=== PATIENT | male | born 1960 | race African-American/Black ===

== ENCOUNTER 2019-08-24 15:43 | Inpatient (IN) | payer MEDICAID ==
[~2019-08-24] VITALS: Ht 170.2 cm; Wt 75.9 kg
[2019-08-24] MEDS ORDERED: ALBUTEROL SULF8.5 GM INH (15:52)
[2019-08-24 16:11] LABS: BASOPHILS 0.5 % (0-2); EOSINOPHILS 1.5 % (0-7); HEMATOCRIT 40.7 % (42.0-54.0); HEMOGLOBIN 13.1 g/dL (13.5-17.5); IMMATURE GRANULOCYTES 0.2 % (0-5); LYMPHOCYTES 29.9 % (15-50); MCH 30.6 pg (26.0-34.0); MCHC 32.2 g/dL (31.0-37.0); MCV 95.1 fL (80.0-100.0); MEAN PLATELET VOLUME 9.2 fL (7.4-10.4); MONOCYTES 12.8 % (2-11); NEUTROPHILS 55.1 % (40-80); PLATELET COUNT 185 10x3/uL (130-400); RBC 4.28 10x6/uL (4.20-6.10); RDW 13.3 % (11.5-14.5); WBC 5.5 10x3/uL (4.8-10.8)
[2019-08-24 16:21] LABS: ANION GAP 5.8 mmol/L (8-16); CALCIUM 8.4 mg/dL (8.5-10.1); CREATININE - SERUM 1.6 mg/dL (0.6-1.3); POTASSIUM - SERUM 3.8 mmol/L (3.5-5.1)
[2019-08-24 16:27] LABS: ALBUMIN 3.5 g/dL (3.4-5.0); BILIRUBIN - TOTAL 0.3 mg/dL (0.2-1.3); PROTEIN - SERUM 7.5 g/dL (6.4-8.2)
[2019-08-24 20:45] LABS: PROTIME 12.7 SECONDS (11.6-15.0)
[2019-08-24 20:46] LABS: APTT 30.8 SECONDS (22.8-39.4)
[2019-08-24 20:47] LABS: D-DIMER-QUANTITATIVE 0.4 ug/mLFEU (0.20-0.54)
[2019-08-24 21:01] LABS: CKMB 1.8 U/L (0.0-3.6); CREATINE KINASE 292 UL (21-232); PRO BNP 292 pg/mL (0-125)
[2019-08-25] VITALS (7 sets, daily range): BP systolic 124–171; BP diastolic 74–97; Ht 170.2 cm; Wt 75.9 kg
--- NOTE | 2019-08-25 07:15 | NUR ---
REC'D SITTING ON SIDE OF BED AWAKE AND ALERT. RESP EVEN AND UNLABORED WITH NO DISTRESS NOTED. CAN EXPRESS NEEDS AND WANTS WITH NONE VOICED AT THIS TIME. ASSESSMENT COMPLETED. C/L IN REACH AT BEDSIDE.
[2019-08-25 07:57] LABS: BASOPHILS 0 % (0-2); EOSINOPHILS 0 % (0-7); HEMATOCRIT 44.1 % (42.0-54.0); HEMOGLOBIN 14.4 g/dL (13.5-17.5); IMMATURE GRANULOCYTES 0.2 % (0-5); LYMPHOCYTES 11.3 % (15-50); MCH 30.7 pg (26.0-34.0); MCHC 32.7 g/dL (31.0-37.0); NEUTROPHILS 86.5 % (40-80); PLATELET COUNT 209 10x3/uL (130-400); RBC 4.69 10x6/uL (4.20-6.10); WBC 5.1 10x3/uL (4.8-10.8)
[2019-08-25 08:12] LABS: ALBUMIN 3.3 g/dL (3.4-5.0); ANION GAP 11.6 mmol/L (8-16); BILIRUBIN - TOTAL 0.32 mg/dL (0.2-1.3); CALCIUM 8.9 mg/dL (8.5-10.1); CREATININE - SERUM 1.3 mg/dL (0.6-1.3); MAGNESIUM - SERUM 1.8 mg/dL (1.8-2.4); PROTEIN - SERUM 7.6 g/dL (6.4-8.2)
[2019-08-25 08:13] LABS: POTASSIUM - SERUM 4.6 mmol/L (3.5-5.1)
--- NOTE | 2019-08-25 18:43 | NUR ---
I have reviewed this patient and I concur with the Shift Assessment completed by the Licensed Practical Nurse today this shift.
--- NOTE | 2019-08-25 20:25 | NUR ---
SITTING UP ON SIDE OF BED. ALERT AND ORIENTED X4. FAMILY AT BEDSIDE. RESP IRREG. SOB WITH MIN EXERTION. NONPROD COUGH NOTED. STATES HE HAS ALOT OF CLEAR NASAL DRAINAGE. VOICE IS HOARSE. AMBULATORY. REPORTS SORE THROAT BUT OTHERWISE DENIES PAIN. SALINE LOCK NOTED TO RT AC. CL IN REACH.
--- NOTE | 2019-08-25 22:30 | NUR ---
AMBULATED TO BR. VERY SOB, TACHYCARDIC. ENCOURAGED BEDREST. SAO2 95% AFTER ENCOURAGING TO TAKE SLOW DEEP BREATHS IN THOUGH NOSE AND OUT THROUGH MOUTH. PULSE WENT FROM 108 TO 84. PT NOT REQUIRING O2 AT THIS TIME. CL IN REACH.
[2019-08-25 23:55] LABS: UDS - AMPHET NEGATIVE QUAL (NEGATIVE); UDS - BARB NEGATIVE QUAL (NEGATIVE); UDS - BENZO NEGATIVE QUAL (NEGATIVE); UDS - COCAINE NEGATIVE QUAL (NEGATIVE); UDS - OPIATE NEGATIVE QUAL (NEGATIVE); UDS - PCP NEGATIVE QUAL (NEGATIVE); UDS - THC NEGATIVE QUAL (NEGATIVE)
[2019-08-26 00:05] LABS: APPEARANCE CLEAR (CLEAR); BILIRUBIN NEGATIVE (NEGATIVE); COLOR STRAW (YELLOW); GLUCOSE 100 mg/dL (NEGATIVE); KETONE NEGATIVE (NEGATIVE); NITRITE NEGATIVE (NEGATIVE); PROTEIN 1+ mg/dL (NEGATIVE); SPECIFIC GRAVITY 1.005 (1.005-1.020); UROBILINOGEN NORMAL (NORMAL)
[2019-08-26 00:06] LABS: BACTERIA FEW /hpf (NEGATIVE); EPITHELIAL CELLS 0-5 /hpf (0-5); RED CELLS - URINE 0-5 /hpf (0-5); WHITE CELLS - URINE NSEEN /hpf (NEGATIVE)
[2019-08-26 00:30] VITALS: BP 131/66
--- NOTE | 2019-08-26 01:59 | NUR ---
RESTING QUIETLY WITH EYES CLOSED. RESP NONLABORED. NO DISTRESS. CHILD ASLEEP IN ROOM. CL IN REACH.
[2019-08-26 05:09] VITALS: BP 132/65
--- NOTE | 2019-08-26 05:43 | NUR ---
IRRITABLE THIS AM. REFUSED LABS THIS AM. STATES HE DOESNT KNOW WHY HE IS HERE AND WHAT HIS LAB RESULTS WERE YESTERDAY AND DOESNT KNOW WHAT THE DR HAS PLANNED FOR HIM. STATES, "THAT DR CAME IN FOR 15 SECONDS YESTERDAY AND WOULDNT LISTEN TO ANYTHING I SAID." REVIEWED HIS LAB RESULTS FROM YESTERDAY AND EXPLAINED WHAT TESTS HAD BEEN ORDERED BUT ENCOURAGED HIM TO SPEAK WITH DR TODAY. MEDICATED AT THIS TIME FOR C/O SORE THROAT. STATES HE DIDNT HAVE A SORE THROAT UNTIL HE USED A MARIJUANA VAPING DEVICE. UDS WAS NEGATIVE FOR THC.
--- NOTE | 2019-08-26 05:55 | NUR ---
AGREED TO HAVE LABS DRAWN AT THIS TIME.
[2019-08-26 06:13] LABS: BASOPHILS 0 % (0-2); EOSINOPHILS 0 % (0-7); HEMATOCRIT 40.5 % (42.0-54.0); IMMATURE GRANULOCYTES 0.2 % (0-5); LYMPHOCYTES 4.9 % (15-50); MCH 30.4 pg (26.0-34.0); MCHC 32.1 g/dL (31.0-37.0); MCV 94.6 fL (80.0-100.0); MEAN PLATELET VOLUME 9.7 fL (7.4-10.4); MONOCYTES 5.1 % (2-11); NEUTROPHILS 89.8 % (40-80); PLATELET COUNT 195 10x3/uL (130-400); RBC 4.28 10x6/uL (4.20-6.10); RDW 13.4 % (11.5-14.5)
[2019-08-26 06:39] LABS: ANION GAP 12.2 mmol/L (8-16); CALCIUM 8.8 mg/dL (8.5-10.1); CARBON DIOXIDE 26.1 mmol/L (21.0-32.0); CREATININE - SERUM 1.2 mg/dL (0.6-1.3); PHOSPHOROUS 3.5 mg/dL (2.5-4.9); POTASSIUM - SERUM 4.3 mmol/L (3.5-5.1)
[2019-08-26 08:03] VITALS: BP 129/83
[2019-08-26 12:15] VITALS: BP 150/90
--- NOTE | 2019-08-26 14:11 | NUR ---
I have reviewed this patient and I concur with the Shift Assessment completed by the Licensed Practical Nurse today this shift.
--- NOTE | 2019-08-26 14:31 | MORECARE ---
CASE MANAGEMENT DISCHARGE SUMMARY PATIENT: DANIKA WILSON UNIT: [id number] ADM DATE: 08/24/19 AGE: 59 : 58 SEX: M ROOM/BED: D.2229 AUTHOR: PARVIZ,DOC PHYSICIAN: REFERRING PHYSICIAN: MOON KING MD DATE OF SERVICE: 08/26/19 Discharge Plan Patient Name: DANIKA WILSON [facility] [facility] 1960 Planned Disposition: Home Anticipated Discharge Date: Discharge Date: Expected LOS: Initial Reviewer: [id number] Initial Review Date: 08/26/2019 Generated: 08/26/19 3:31 pm Comments DCP- Discharge Planning Updated by [email or web address]: Nitza Chase on 08/26/19 1:[address] Patient Name: DANIKA WILSON Admission Status: ER Accout number: [id number] Admission Date: 08-24-2019 : 1960 Admission Diagnosis: Attending: MOON KING Current LOS: 2 Anticipated DC Date: Planned Disposition: Home Primary Insurance: [employer] PRVT OPTIONS TAMARA Discharge Planning Comments: CM met with patient to complete initial dc planning assessment. CM educated patient on the CM role and verbal consent given by patient to complete assessment. Patient lives at home alone at [address] [place] [address] [address] At discharge patient plans to return and feels this is a safe discharge. CM discussed availability of home health, rehab services, and medical equipment. Patient denied known discharge needs at this time. CM will continue to follow and will assist as needed with dc plans/needs. Physical Meteorologist: Nitza Chase DCPIA - Discharge Planning Initial Assessment Updated by [email or web address]: Nitza Chase on 08/26/19 2:24 pm * Is the patient Alert and Oriented? Yes * How many steps to enter\exit or inside your home? 0/0 * PCP None * Pharmacy [facility] * Preadmission Environment Home Alone * ADLs Independent * Equipment Other Oxygen * Other Equipment Portable oxygen * List name and contact numbers for known caregivers / representatives who currently or will assist patient after discharge: [facility] - [phone] Lexi [facility] - [phone] * Verbal permission to speak to the caregivers and representatives has been obtained from the patient. Yes * Community resources currently utilized None * Additional services required to return to the preadmission environment? No * Can the patient safely return to the preadmission environment? Yes * Has this patient been hospitalized within the prior 30 days at any hospital? No Coverage Notice Reviewer: [id number] Francheska Nitza Rena Notice Issued Date-Time: 08/26/2019 14:21 Notice Type: Patient Choice Letter Notice Delivered To: Patient Relationship to Patient: Self Peach Grower Name: Delivery Method: HAND - Hand Delivered Riddhi Days: Prior Verbal Notification: Recipient Understood Notice: Yes Recipient Signature: Yes Med Rec Note Co-signed by Attending: Coverage Notice Comment: ROSELINE for [employer] Patient Name: DANIKA WILSON Page [phone] at 1431 All edits/amendments must be made on the electronic document DICTATION DATE: 08/26/19 143 DEVELOPING MACHINE OPERATOR: FERNANDA 08/26/19 1431 RPT#: [id number] DC DATE: STATUS: ADM IN [facility] [address] [place] [address] END OF REPORT
[2019-08-26 17:20] VITALS: BP 142/62
[2019-08-26] MEDS ORDERED: LISINOPRIL20 MG PO (18:30)
[2019-08-26] MEDS ORDERED: TESSALON PERLE100 MG PO (18:31)
[2019-08-26] MEDS ORDERED: SINGULAIR10 MG PO (18:33)
[2019-08-26] MEDS ORDERED: FLUTICASONE PRO16 GM NASAL (18:35)
[2019-08-26] MEDS ORDERED: PREDNISONE10 MG PO (18:36)
[2019-08-26] MEDS ORDERED: MUCINEX DM ER1 EAC1 PO (18:50)
[2019-08-26] MEDS ORDERED: SYMBICORT 16010.2 GM INH (18:57)
[2019-08-26] MEDS ORDERED: ALBUTEROL SULF8.5 GM INH (18:58)
--- NOTE | 2019-08-26 19:44 | NUR ---
A/O WITH NO SIGNS OF ACUTE DISTRESS. WENT OVER DISCHARGE INSTRUCTIONS AND PT DENIES QUESTIONS AT THIS TIME. DC IV TO RIGHT FOREARM WITH CATH INTACT. TRASPORTED PT VIA WHEELCHAIR TO VEHICLE.
[2019-08-26 21:00] VITALS: BP 151/90
--- NOTE | 2019-08-28 08:33 | MORECARE ---
CASE MANAGEMENT DISCHARGE SUMMARY PATIENT: DANIKA WILSON UNIT: [id number] ADM DATE: 08/24/19 AGE: 59 : 58 SEX: M ROOM/BED: D.2229 AUTHOR: PARVIZ,DOC PHYSICIAN: REFERRING PHYSICIAN: MOON KING MD DATE OF SERVICE: 08/28/19 Discharge Plan Patient Name: DANIKA WILSON [facility] [facility] 1960 Planned Disposition: Home Anticipated Discharge Date: Discharge Date: 08/26/2019 Expected LOS: 0 Initial Reviewer: [id number] Initial Review Date: 08/26/2019 Generated: 08/28/19 9:33 am Comments DCP- Discharge Planning Updated by [email or web address]: Nitza Chase on 08/26/19 1:[address] Patient Name: DANIKA WILSON Admission Status: ER Accout number: [id number] Admission Date: 08-24-2019 : 1960 Admission Diagnosis: Attending: MOON KING Current LOS: 2 Anticipated DC Date: Planned Disposition: Home Primary Insurance: [employer] PRVT OPTIONS TAMARA Discharge Planning Comments: CM met with patient to complete initial dc planning assessment. CM educated patient on the CM role and verbal consent given by patient to complete assessment. Patient lives at home alone at [address] [place] [address]. At discharge patient plans to return and feels this is a safe discharge. CM discussed availability of home health, rehab services, and medical equipment. Patient denied known discharge needs at this time. CM will continue to follow and will assist as needed with dc plans/needs. Investment Executive: Nitza Chase DCPIA - Discharge Planning Initial Assessment Updated by [email or web address]: Nitza Chase on 08/26/19 2:24 pm * Is the patient Alert and Oriented? Yes * How many steps to enter\exit or inside your home? 0/0 * PCP None * Pharmacy [facility] * Preadmission Environment Home Alone * ADLs Independent * Equipment Other Oxygen * Other Equipment Portable oxygen * List name and contact numbers for known caregivers / representatives who currently or will assist patient after discharge: Michelle [facility] [phone] Lexi [facility] [phone] * Verbal permission to speak to the caregivers and representatives has been obtained from the patient. Yes * Community resources currently utilized None * Additional services required to return to the preadmission environment? No * Can the patient safely return to the preadmission environment? Yes * Has this patient been hospitalized within the prior 30 days at any hospital? No Coverage Notice Reviewer: [id number] Francheska Chase Notice Issued Date-Time: 08/26/2019 14:21 Notice Type: Patient Choice Letter Notice Delivered To: Patient Relationship to Patient: Self Senior C Software Engineer Name: Delivery Method: HAND - Hand Delivered Riddhi Days: Prior Verbal Notification: Recipient Understood Notice: Yes Recipient Signature: Yes Med Rec Note Co-signed by Attending: Coverage Notice Comment: ROSELINE for [employer] Delcid DP export: 08/26/19 1:31 p Patient Name: DANIKA WILSON Page [phone] at 0833 All edits/amendments must be made on the electronic document DICTATION DATE: 08/28/19832 RETAIL PARTS PRO: FERNANDA 08/28/19832 RPT#: [id number] DC DATE:08/26/19 STATUS: DIS IN [facility] [address] [place] [address] END OF REPORT
== END 2019-08-26 22:58 | disposition home or self-care (01) | DRG 202 ==
LOC: D.ER 15:43 → D.MS 20:51
PROVIDERS: Emergency Medicine; Family Medicine; ADMIT Internal Medicine Nephrology; ATTEND Internal Medicine Nephrology
DX: J20.9 Acute bronchitis, unspecified (principal); J44.0 Chronic obstructive pulmonary disease with (acute) lower respiratory infection; J98.11 Atelectasis; J44.1 Chronic obstructive pulmonary disease with (acute) exacerbation; Z85.118 Personal history of other malignant neoplasm of bronchus and lung; I10 Essential (primary) hypertension; Z72.0 Tobacco use; Z91.14 Patient's other noncompliance with medication regimen; F12.90 Cannabis use, unspecified, uncomplicated; D72.829 Elevated white blood cell count, unspecified

== ENCOUNTER 2019-09-05 15:19 | Inpatient (IN) | payer MEDICAID ==
[~2019-09-05] VITALS: Ht 170.2 cm; Wt 79.1 kg
[~2019-09-05 15:19] MED LIST: ALBUTEROL SULF8.5 GM INH; FLUTICASONE PRO16 GM NASAL; LISINOPRIL20 MG PO; MUCINEX DM ER1 EAC1 PO; PREDNISONE10 MG PO; SINGULAIR10 MG PO; SYMBICORT 16010.2 GM INH; TESSALON PERLE100 MG PO
[2019-09-05 15:50] LABS: BASOPHILS 0.1 % (0-2); EOSINOPHILS 1.4 % (0-7); HEMATOCRIT 41.7 % (42.0-54.0); HEMOGLOBIN 13.3 g/dL (13.5-17.5); IMMATURE GRANULOCYTES 0.4 % (0-5); LYMPHOCYTES 22.7 % (15-50); MCH 30.6 pg (26.0-34.0); MCHC 31.9 g/dL (31.0-37.0); MCV 96.1 fL (80.0-100.0); MEAN PLATELET VOLUME 9.4 fL (7.4-10.4); NEUTROPHILS 62.4 % (40-80); PLATELET COUNT 179 10x3/uL (130-400); RBC 4.34 10x6/uL (4.20-6.10); RDW 13.9 % (11.5-14.5); WBC 7.7 10x3/uL (4.8-10.8)
[2019-09-05 15:58] LABS: APTT 26.2 SECONDS (22.8-39.4); CALC OSMOLALITY 289 mosm/kg (275-300); CALCIUM 8.4 mg/dL (8.5-10.1); CARBON DIOXIDE 34.4 mmol/L (21.0-32.0); CHLORIDE - SERUM 105 mmol/L (98-107); CREATININE - SERUM 1.4 mg/dL (0.6-1.3); GLUCOSE 97 mg/dL (74-106); INR 0.99 (0.85-1.17); POTASSIUM - SERUM 3.3 mmol/L (3.5-5.1); PROTIME 12.6 SECONDS (11.6-15.0); SODIUM 144 mmol/L (136-145); UREA NITROGEN 20 mg/dL (7-18); eGFR NON AFRICAN AMERICAN 55 mL/min (90-120)
[2019-09-05 16:14] LABS: ALKALINE PHOSPHATASE 100 U/L (46-116); ALT (SGPT) 20 U/L (10-68); BILIRUBIN - TOTAL 0.21 mg/dL (0.2-1.3); CKMB 2.9 U/L (0.0-3.6); CREATINE KINASE 184 UL (21-232); PRO BNP 238 pg/mL (0-125); PROTEIN - SERUM 6.7 g/dL (6.4-8.2); TROPONIN-I 0.029 ng/mL (0.000-0.060)
--- NOTE | 2019-09-05 20:40 | NUR ---
RECEIVED PT FROM ER VIA STRETCHER. GEN WEAKNESS NOTED. ALERT AND ORIENTED X4. RESP LABORED, IRREG. STATES, "I'M IN BAD SHAPE." STATES HE HAS DIFF SWALLOWING PILLS. C/O PAIN IN RT CHEST AND LT NECK. VOICE IS HOARSE. FAMILY AT BEDSIDE. O2 @ 3L/NC. REPORTS PROD COUGH WITH YELLOW SPUTUM BUT NONE SEEN. AUDIBLE EXP WHEEZES HEARD IN UPPER AIRWAY BUT BBS DIMINISHED. SALINE LOCK NOTED TO RT FOREARM. BED ALARM ON FOR PT SAFETY. SR ELEVATED X2. CL IN REACH.
--- NOTE | 2019-09-05 21:14 | NUR ---
REQUESTING MORPHINE FOR PAIN. MEDICATED WITH MORPHINE FOR C/O LT NECK AND RT CHEST PAIN. DIFF STAYING AWAKE DURING ADMISSION ASSESSEMNT. POOR HISTORIAN AT TIMES. SR ELEVATED X2. CL IN REACH. BED ALARM ON FOR PT SAFETY. CHILD AT BEDSIDE STAYING WITH PT.
[2019-09-05] MEDS ORDERED: PROMETHAZINE W473 ML PO (21:28)
[2019-09-05 23:43] VITALS: BP 150/88; BMI 26.7
[2019-09-06] VITALS: BP 151/84
--- NOTE | 2019-09-06 01:34 | NUR ---
HOB ELEVATED. EYES CLOSED. RESP DEEP. HAS BEEN ASLEEP SINCE MORPHINE GIVEN. AWAKENS PER TOUCH. VERY DROWSY. NO DISTRESS. O2 @ 3L/NC. V/S STABLE. CL IN REACH.
--- NOTE | 2019-09-06 02:40 | NUR ---
ASSISTED UP TO BR TO VOID. USED URINAL THEN HAD A BM. VERY SOB.
[2019-09-06 04:00] VITALS: BP 157/102
[2019-09-06 07:59] VITALS: BP 176/98
[2019-09-06 09:55] LABS: BASOPHILS 0 % (0-2); EOSINOPHILS 0 % (0-7); HEMATOCRIT 42.4 % (42.0-54.0); HEMOGLOBIN 13.5 g/dL (13.5-17.5); IMMATURE GRANULOCYTES 0.2 % (0-5); LYMPHOCYTES 4.5 % (15-50); MCHC 31.8 g/dL (31.0-37.0); MCV 97.2 fL (80.0-100.0); MEAN PLATELET VOLUME 9.4 fL (7.4-10.4); NEUTROPHILS 94.3 % (40-80); PLATELET COUNT 189 10x3/uL (130-400); RBC 4.36 10x6/uL (4.20-6.10); RDW 14.1 % (11.5-14.5); WBC 8.9 10x3/uL (4.8-10.8)
[2019-09-06 10:14] LABS: ANION GAP 7.8 mmol/L (8-16); BILIRUBIN - TOTAL 0.36 mg/dL (0.2-1.3); CALCIUM 8.6 mg/dL (8.5-10.1); CARBON DIOXIDE 33.6 mmol/L (21.0-32.0); CREATININE - SERUM 1.4 mg/dL (0.6-1.3); PROTEIN - SERUM 7.1 g/dL (6.4-8.2)
[2019-09-06 10:16] LABS: POTASSIUM - SERUM 4.4 mmol/L (3.5-5.1)
--- NOTE | 2019-09-06 10:37 | NUR ---
PT ALERT X 4. INSPIRATORY AND EXPIRATORY WHEEZES TO ALL DOWD, 3L O2 PER NC. PT REPORTING TROUBLE SWALLOWING. IV TO RIGHT FOREARM, PATENT, DRESSING CDI. PT REPORTING PAIN OF 8/10, MEDICATED PER ORDERS, WILL MONITOR. BED LOW, CALL LIGHT IN REACH. NO OTHER NEEDS AT THIS TIME.
[2019-09-06 11:39] VITALS: BP 157/90
[2019-09-06 16:31] VITALS: BP 179/81
[2019-09-06 20:00] VITALS: BP 180/86
[2019-09-06 20:02] LABS: APPEARANCE CLEAR (CLEAR); BILIRUBIN NEGATIVE (NEGATIVE); COLOR YELLOW (YELLOW); GLUCOSE NEGATIVE (NEGATIVE); KETONE NEGATIVE (NEGATIVE); NITRITE NEGATIVE (NEGATIVE); PROTEIN 1+ mg/dL (NEGATIVE); UROBILINOGEN NORMAL (NORMAL)
[2019-09-06 20:03] LABS: BACTERIA FEW /hpf (NEGATIVE); RED CELLS - URINE 0-5 /hpf (0-5); WHITE CELLS - URINE RARE /hpf (NEGATIVE)
[2019-09-07] VITALS: BP 162/67
[2019-09-07 04:00] VITALS: BP 179/93
[2019-09-07 06:02] LABS: BASOPHILS 0 % (0-2); EOSINOPHILS 0 % (0-7); HEMATOCRIT 40.4 % (42.0-54.0); HEMOGLOBIN 12.8 g/dL (13.5-17.5); IMMATURE GRANULOCYTES 0.2 % (0-5); LYMPHOCYTES 4.2 % (15-50); MCH 30.4 pg (26.0-34.0); MCHC 31.7 g/dL (31.0-37.0); MONOCYTES 8.2 % (2-11); NEUTROPHILS 87.4 % (40-80); PLATELET COUNT 183 10x3/uL (130-400); RBC 4.21 10x6/uL (4.20-6.10); RDW 14.2 % (11.5-14.5)
[2019-09-07 06:15] LABS: WBC 16.2 10x3/uL (4.8-10.8)
[2019-09-07 06:35] LABS: ANION GAP 7.8 mmol/L (8-16); BILIRUBIN - TOTAL 0.24 mg/dL (0.2-1.3); CALCIUM 8.6 mg/dL (8.5-10.1); CARBON DIOXIDE 32.2 mmol/L (21.0-32.0); CREATININE - SERUM 1.2 mg/dL (0.6-1.3); PROTEIN - SERUM 6.6 g/dL (6.4-8.2); VANCOMYCIN - TROUGH 9.4 ug/mL (10.0-20.0)
[2019-09-07 08:21] VITALS: BP 148/78
--- NOTE | 2019-09-07 10:41 | NUR ---
FAMILY IN ROOM. PATIENT HAS HAD A SHOWER. CLEAN LINENS PROVIDED. NEW TELEMETRY ELECTRODES. CL IN REACH. [facility]
[2019-09-07 13:06] VITALS: BMI 24.1
[2019-09-07 13:15] VITALS: BP 162/76
[2019-09-07 16:19] VITALS: BP 162/94
--- NOTE | 2019-09-07 17:05 | MORECARE ---
CASE MANAGEMENT DISCHARGE SUMMARY PATIENT: DANIKA WILSON UNIT: [id number] ADM DATE: 09/05/19 AGE: 59 : 58 SEX: M ROOM/BED: D.2238 AUTHOR: GRANT JJ PHYSICIAN: REFERRING PHYSICIAN: MOON KING MD DATE OF SERVICE: 09/07/19 Discharge Plan Patient Name: DANIKA WILSON [facility] [facility] 1960 Planned Disposition: Home Anticipated Discharge Date: Discharge Date: Expected LOS: Initial Reviewer: [email or web address] Initial Review Date: 09/07/2019 Generated: 09/07/19 6:05 pm DCPIA - Discharge Planning Initial Assessment Updated by [id number]: Nitza Chase on 09/07/19 5:00 pm * Is the patient Alert and Oriented? Yes * How many steps to enter\exit or inside your home? 0/0 * PCP Bernice Kebede * Pharmacy [facility] on [facility] * Preadmission Environment Home Alone * ADLs Independent * Equipment Other Oxygen * Other Equipment Portable oxygen * List name and contact numbers for known caregivers / representatives who currently or will assist patient after discharge: Michelle [phone] Lexi [facility] [phone] Sanjana Wright [facility] [phone] * Verbal permission to speak to the caregivers and representatives has been obtained from the patient. Yes * Community resources currently utilized None * Please name any agencies selected above. DME for oxygen is [facility] * Additional services required to return to the preadmission environment? Yes * Can the patient safely return to the preadmission environment? Yes * Has this patient been hospitalized within the prior 30 days at any hospital? Yes Patient Name: DANIKA WILSON Page [phone] at 1705 All edits/amendments must be made on the electronic document DICTATION DATE: 09/07/191704 CHEMICAL TREATMENT OPERATOR: FERNANDA 09/07/191704 RPT#: [id number] DC DATE: STATUS: ADM IN [facility] [address] [place] [address] END OF REPORT
--- NOTE | 2019-09-07 17:13 | MORECARE ---
CASE MANAGEMENT DISCHARGE SUMMARY PATIENT: DANIKA WILSON UNIT: [id number] ADM DATE: 09/05/19 AGE: 59 : 58 SEX: M ROOM/BED: D.2238 AUTHOR: PARVIZDOC PHYSICIAN: REFERRING PHYSICIAN: MOON KING MD DATE OF SERVICE: 09/07/19 Discharge Plan Patient Name: DANIKA WILSON [facility] : 1960 Planned Disposition: Home Anticipated Discharge Date: Discharge Date: Expected LOS: Initial Reviewer: [email or web address] Initial Review Date: 09/07/2019 Generated: 09/07/19 6:13 pm Comments DCP- Discharge Planning Updated by [email or web address]: Nitza Chase on 09/07/19 4:[address] Patient Name: DANIKA WILSON Admission Status: ER Accout number: [id number] Admission Date: 09-05-2019 : 1960 Admission Diagnosis: Attending: MOON KING Current LOS: 2 Anticipated DC Date: Planned Disposition: Home Primary Insurance: [employer] PRVT OPTIONS TAMARA Discharge Planning Comments: CM met with patient to complete initial dc planning assessment. CM educated patient on the CM role and verbal consent given by patient to complete assessment. Patient lives at home alone. At discharge patient plans to return and feels this is a safe discharge. CM discussed availability of home health, rehab services, and medical equipment. Declines need for home health or rehab. Patient states Dr. Jacobs states he will need a nebulizer at discharge. I have called Akbar with [employer] and she will be here in the am. Patient states he has tried to have [employer] poultry picking machine tender his old oxygen machine, but they have not gotten it yet. I will have Akbar discuss this with the patient when she comes in the morning. CM will continue to follow and will assist as needed with dc plans/needs. Web Marketing Strategist: Nitza Chase DCPIA - Discharge Planning Initial Assessment Updated by [id number]: Nitza Chase on 09/07/19 5:00 pm * Is the patient Alert and Oriented? Yes * How many steps to enter\exit or inside your home? 0/0 * PCP Bernice Kebede * Pharmacy [facility] on [facility] * Preadmission Environment Home Alone * ADLs Independent * Equipment Other Oxygen * Other Equipment Portable oxygen * List name and contact numbers for known caregivers / representatives who currently or will assist patient after discharge: Michelle mckeon - [phone] Lexi mckeon - [phone] Sanjana mckeon - [phone] * Verbal permission to speak to the caregivers and representatives has been obtained from the patient. Yes * Community resources currently utilized None * Please name any agencies selected above. DME for oxygen is [facility] * Additional services required to return to the preadmission environment? Yes * Can the patient safely return to the preadmission environment? Yes * Has this patient been hospitalized within the prior 30 days at any hospital? Yes Coverage Notice Reviewer: [id number] Francheska Chase Notice Issued Date-Time: 09/07/2019 17:06 Notice Type: Patient Choice Letter Notice Delivered To: Patient Relationship to Patient: Self Transfer Driver Name: Delivery Method: HAND - Hand Delivered Riddhi Days: Prior Verbal Notification: Recipient Understood Notice: Yes Recipient Signature: Yes Med Rec Note Co-signed by Attending: Coverage Notice Comment: ROSELINE for [employer] Last DP export: 09/07/19 4:05 Patient Name: DANIKA WILSON Page [phone] at 1713 All edits/amendments must be made on the electronic document DICTATION DATE: 09/07/191712 TRICOT KNITTER: FERNANDA 09/07/191712 RPT#: [id number] DC DATE: STATUS: ADM IN [facility] [address] [place] [address] END OF REPORT
[2019-09-07 20:53] VITALS: BP 177/84
[2019-09-08 01:15] VITALS: BP 185/98
[2019-09-08 04:44] VITALS: BP 190/97
--- NOTE | 2019-09-08 06:23 | NUR ---
I have reviewed this patient and I concur with the Shift Assessment completed by the Licensed Practical Nurse today this shift.
[2019-09-08 06:39] LABS: BASOPHILS 0 % (0-2); EOSINOPHILS 0 % (0-7); HEMATOCRIT 38.8 % (42.0-54.0); HEMOGLOBIN 12.4 g/dL (13.5-17.5); IMMATURE GRANULOCYTES 0.3 % (0-5); LYMPHOCYTES 4.3 % (15-50); MCH 30.7 pg (26.0-34.0); MEAN PLATELET VOLUME 10.1 fL (7.4-10.4); MONOCYTES 6.6 % (2-11); NEUTROPHILS 88.8 % (40-80); PLATELET COUNT 174 10x3/uL (130-400); RBC 4.04 10x6/uL (4.20-6.10); RDW 14.3 % (11.5-14.5); WBC 14.1 10x3/uL (4.8-10.8)
[2019-09-08 06:43] LABS: ALBUMIN 2.7 g/dL (3.4-5.0); ANION GAP 9.6 mmol/L (8-16); BILIRUBIN - TOTAL 0.3 mg/dL (0.2-1.3); CALCIUM 8.6 mg/dL (8.5-10.1); CARBON DIOXIDE 31.5 mmol/L (21.0-32.0); CREATININE - SERUM 1.2 mg/dL (0.6-1.3); MAGNESIUM - SERUM 1.8 mg/dL (1.8-2.4); POTASSIUM - SERUM 4.1 mmol/L (3.5-5.1); PROTEIN - SERUM 6.2 g/dL (6.4-8.2)
--- NOTE | 2019-09-08 07:10 | NUR ---
PT RESTING IN BED. NO SIGNS OF DISTRESS. IV TO RIGHT FORARM PATENT NO REDNESS OR TENDERNESS. ON TELEMETRY 77 SR. ON 2L NC. DENIES ANY FURTHER NEED AT THIS TIME. CALL LIGHT IN REACH. BED LOW POSITION. FAMILY AT BEDSIDE AT THIS TIME.
[2019-09-08 08:35] VITALS: BP 189/101
[2019-09-08 12:15] VITALS: BP 166/91
[2019-09-08 16:51] VITALS: BP 166/91
--- NOTE | 2019-09-08 18:17 | NUR ---
I have reviewed this patient and I concur with the Shift Assessment completed by the Licensed Practical Nurse today this shift.
[2019-09-08 20:48] VITALS: BP 133/91
[2019-09-09 00:59] VITALS: BP 130/84
--- NOTE | 2019-09-09 05:00 | NUR ---
1930)rec'd. during walking rounds in bed upright sitting position. several visitors at bedside.denies any discomfort at present time. will continue to monitor for any chges and follow current plan of care
[2019-09-09 05:12] VITALS: BP 173/91
--- NOTE | 2019-09-09 06:06 | NUR ---
I have reviewed this patient and I concur with the Shift Assessment completed by the Licensed Practical Nurse today this shift.
[2019-09-09 06:12] LABS: BASOPHILS 0 % (0-2); EOSINOPHILS 0 % (0-7); HEMATOCRIT 42.1 % (42.0-54.0); HEMOGLOBIN 13.2 g/dL (13.5-17.5); IMMATURE GRANULOCYTES 0.4 % (0-5); LYMPHOCYTES 8.1 % (15-50); MCH 30.2 pg (26.0-34.0); MCHC 31.4 g/dL (31.0-37.0); MCV 96.3 fL (80.0-100.0); MEAN PLATELET VOLUME 9.7 fL (7.4-10.4); MONOCYTES 9.3 % (2-11); NEUTROPHILS 82.2 % (40-80); PLATELET COUNT 168 10x3/uL (130-400); RBC 4.37 10x6/uL (4.20-6.10); WBC 11.4 10x3/uL (4.8-10.8)
[2019-09-09 06:31] LABS: ANION GAP 5.3 mmol/L (8-16); BILIRUBIN - TOTAL 0.48 mg/dL (0.2-1.3); CALCIUM 8.7 mg/dL (8.5-10.1); CARBON DIOXIDE 35.7 mmol/L (21.0-32.0); CREATININE - SERUM 1.2 mg/dL (0.6-1.3); MAGNESIUM - SERUM 1.8 mg/dL (1.8-2.4); PROTEIN - SERUM 6.7 g/dL (6.4-8.2)
[2019-09-09 08:37] VITALS: BP 179/109
[2019-09-09 11:59] VITALS: BP 164/98
--- NOTE | 2019-09-09 16:18 | NUR ---
RESTING IN BED, FAMILY IN ROOM, NO DISTRESS NOTED, WILL HAVE PROCEDURE TOMORROW HERE
[2019-09-09 16:23] VITALS: BP 147/83
[2019-09-09 21:12] VITALS: BP 163/93
[2019-09-10] VITALS (21 sets, daily range): BP systolic 125–223; BP diastolic 73–143
--- NOTE | 2019-09-10 06:29 | NUR ---
I have reviewed this patient and I concur with the Shift Assessment completed by the Licensed Practical Nurse today this shift.
[2019-09-10 07:36] LABS: BASOPHILS 0 % (0-2); EOSINOPHILS 0 % (0-7); HEMOGLOBIN 13.3 g/dL (13.5-17.5); IMMATURE GRANULOCYTES 0.3 % (0-5); LYMPHOCYTES 8.2 % (15-50); MCH 30.3 pg (26.0-34.0); MCHC 31.7 g/dL (31.0-37.0); MCV 95.7 fL (80.0-100.0); MEAN PLATELET VOLUME 9.8 fL (7.4-10.4); MONOCYTES 8.7 % (2-11); NEUTROPHILS 82.8 % (40-80); PLATELET COUNT 160 10x3/uL (130-400); RBC 4.39 10x6/uL (4.20-6.10); WBC 10.4 10x3/uL (4.8-10.8)
[2019-09-10 07:50] LABS: ALBUMIN 2.9 g/dL (3.4-5.0); ANION GAP 3.7 mmol/L (8-16); BILIRUBIN - TOTAL 0.41 mg/dL (0.2-1.3); CALCIUM 8.7 mg/dL (8.5-10.1); CARBON DIOXIDE 36.7 mmol/L (21.0-32.0); CREATININE - SERUM 1.1 mg/dL (0.6-1.3); MAGNESIUM - SERUM 1.8 mg/dL (1.8-2.4); POTASSIUM - SERUM 4.4 mmol/L (3.5-5.1); PROTEIN - SERUM 6.5 g/dL (6.4-8.2)
--- NOTE | 2019-09-10 09:30 | NUR ---
PT FROM RECOVERY. FRESH TRACH PLACED. HOOKED UP TO VENT. SETTINGS PER NURSE SANDER SETTER AND RESP THERAPY. NS INFUSING. PROPOFOL STARTED. PT PLACED IN RESTRAINTS. ESTES PLACED. ELEVATED BP.
--- NOTE | 2019-09-10 10:46 | NUR ---
FENTANYL STARTED ON PT.
--- NOTE | 2019-09-10 11:15 | NUR ---
ASSESSMENT COMPLETED. CHEST XRAY DONE. RT PRESENT. PT LOG ROLLED. VSS. WILL CONTINUE TO MONITOR.
--- NOTE | 2019-09-10 13:16 | NUR ---
FAMILY AT BEDSIDE. PT RESTING QUIETLY. ON FENTANYL AND PROPOFOL. NO VISIBLE DISTRESS NOTED. VSS. WILL CONTINUE TO MONITOR.
--- NOTE | 2019-09-10 15:52 | NUR ---
VSS. PT SEDATED. NO S/S DISTRESS. WILL CONTINUE TO MONITOR.
[2019-09-10 18:08] LABS: IMMUNOGLOBULIN E 738 IU/mL (6-495)
--- NOTE | 2019-09-10 19:00 | NUR ---
PT REPORT RECEIVED FROM DAY SHIFT NURSE. NO VISIBLE SIGNS OF DISTRESS NOTED. FRESH TRACH PROTOCOL IN PLACE. SHIFT ASSESSMENT COMPLETED. WILL CONTINUE TO MONITOR
--- NOTE | 2019-09-10 21:00 | NUR ---
PT RESTING IN BED. FAMILY AT BEDSIDE. UPDATE GIVEN. NO QUESTIONS AT THIS TIME. VSS. WILL CONTINUE TO MONITOR
--- NOTE | 2019-09-10 23:00 | NUR ---
PT RESTING IN BED. REASSESSMENT COMPLETED AT THIS TIME. VSS. NO VISIBLE SIGNS OF DISTRESS NOTED. WILL CONTINUE TO MONITOR
[2019-09-11] VITALS (24 sets, daily range): BP systolic 133–175; BP diastolic 72–85; Ht 170.2 cm; Wt 79.1 kg
--- NOTE | 2019-09-11 01:00 | NUR ---
PT RESTING IN BED. CURRENTLY SEDATED. NO VISIBLE SIGNS OF DISTRESS NOTED. VSS. WILL CONTINUE TO MONITOR
--- NOTE | 2019-09-11 03:00 | NUR ---
PT RESTING IN BED. VSS. NO VISIBLE SIGNS OF DISTRESS NOTED. REASSESSMENT COMPLETED. WILL CONTINUE TO MONITOR
[2019-09-11 03:17] LABS: BASOPHILS 0 % (0-2); EOSINOPHILS 0.8 % (0-7); HEMATOCRIT 42.1 % (42.0-54.0); HEMOGLOBIN 13.3 g/dL (13.5-17.5); IMMATURE GRANULOCYTES 0.3 % (0-5); LYMPHOCYTES 15.2 % (15-50); MCHC 31.6 g/dL (31.0-37.0); MEAN PLATELET VOLUME 10.1 fL (7.4-10.4); MONOCYTES 11.3 % (2-11); NEUTROPHILS 72.4 % (40-80); PLATELET COUNT 144 10x3/uL (130-400); RBC 4.43 10x6/uL (4.20-6.10); RDW 14.3 % (11.5-14.5); WBC 8.8 10x3/uL (4.8-10.8)
[2019-09-11 03:41] LABS: ALBUMIN 2.5 g/dL (3.4-5.0); ALKALINE PHOSPHATASE 52 U/L (46-116); ALT (SGPT) 33 U/L (10-68); BILIRUBIN - TOTAL 0.46 mg/dL (0.2-1.3); CALC OSMOLALITY 283 mosm/kg (275-300); CALCIUM 8.7 mg/dL (8.5-10.1); CARBON DIOXIDE 33.5 mmol/L (21.0-32.0); CHLORIDE - SERUM 107 mmol/L (98-107); GLUCOSE 101 mg/dL (74-106); MAGNESIUM - SERUM 1.9 mg/dL (1.8-2.4); POTASSIUM - SERUM 4.1 mmol/L (3.5-5.1); SODIUM 142 mmol/L (136-145); UREA NITROGEN 16 mg/dL (7-18); eGFR NON AFRICAN AMERICAN 81 mL/min (90-120)
--- NOTE | 2019-09-11 04:00 | NUR ---
OBTAINED I&O HOWEVER UNABLE TO OBTAIN DAILY WEIGHT DUE TO BED SCALE BEING BROKEN. PT UNABLE TO TRANSFER TO ANOTHER SCALE
--- NOTE | 2019-09-11 04:55 | NUR ---
PT RESTING IN BED. NO VISIBLE SIGNS OF DISTRESS NOTED. VSS. WILL CONTINUE TO MONITOR
--- NOTE | 2019-09-11 07:15 | NUR ---
REPORT RECEIVED. PT RESTING QUIETLY. IV TO LEFT HAND AND RIGHT UPPER ARM WITH NS, FENTANYL, AND PROPOFOL INFUSING. PT HAS CATHETER. PT HAS FRESH TRACH THAT WAS PLACED 09/10/19. VSS. AFEBRILE. WILL CONTINUE TO MONITOR.
--- NOTE | 2019-09-11 08:20 | NUR ---
PTS FAMILY, ARNOLD AND JAYANT UP WITH PT THIS MORNING. SPOKE WITH ABOUT PASSCODE AND PEOPLE ALLOWED TO KNOW INFORMATION AND SEE PT. PASSCODE IS 1959. SIGN ON DOOR TO SPEAK WITH NURSE BEFORE ENTERING ROOM. VSS. WILL CONTINUE TO MONITOR.
--- NOTE | 2019-09-11 09:06 | NUR ---
Nutrition follow-up: Pt intubated, sedated with new TRACH. NPO PT with good po intake before surgery Labs reviewed Wt: 154# Recommend starting Osmolite 1.0 guido @ 25 ml/hr with gradual increase to goal rate of 75 ml/hr with 100 ml H2O flush Q 4 hours. Pt will need PEG placement. RDN following.
--- NOTE | 2019-09-11 09:45 | NUR ---
PT RESTING QUIETLY. SEDATED. VENT TO TRACH. VSS. WILL CONTINUE TO MONITOR.
--- NOTE | 2019-09-11 11:45 | NUR ---
DR DELEON ROUNDING ON PT. DR MUNOZS IN WITH PT WELL, DISCUSSING NEED FOR PEG PLACEMENT. WILL CONTINUE TO MONITOR.
--- NOTE | 2019-09-11 13:30 | NUR ---
DR SARGENT IN UNIT. COURT REPORTER FOR GENERAL SURGERY. MADE AWARE OF CONSULT FOR PEG TUBE PLACEMENT.
--- NOTE | 2019-09-11 15:30 | NUR ---
PT RESTING QUIETLY. SEDATED. VANCOMYCIN INFUSING. VSS. WILL CONTINUE TO MONITOR.
--- NOTE | 2019-09-11 17:19 | NUR ---
UPDATED FAMILY. UNDERSTAND TO NOT STIMULATE PT AND TO LET REST. VSS. WILL CONTINUE TO MONITOR.
--- NOTE | 2019-09-11 19:00 | NUR ---
REPORT RECEIVED. INITIAL ASSESSMENT COMPLETE SEE ASSESSMENT FLOWSHEET. PT SEDATED WITH NEW TRACH IN PLACE AND SECURED CONNECTED TO VENT SEE RESP THERAPISTS NOTES. CM READING SR WITHOUT ECTOPY ALARMS ON AND AUDIBLE. ESTES IN PLACE. BED IN LOW POSITION SIDE RAILS UP TIMES 3 FOR BED MOBILITY AND SAFETY. CL IN REACH. VSS WILL CONTINUE TO MONITOR
--- NOTE | 2019-09-11 20:00 | NUR ---
FAMILY AT BEDSIDE FOR VISITATION QUESTIONS ANSWERED UPDATE GIVEN
--- NOTE | 2019-09-11 23:00 | NUR ---
REASSESSMENT MADE NO CHANGES. REPOSITIONED FOR COMFORT CPOC
[2019-09-12] VITALS (24 sets, daily range): BP systolic 100–163; BP diastolic 61–90
--- NOTE | 2019-09-12 03:00 | NUR ---
REASSESSMENT MADE VSS CPOC TRACH PROTOCOL CONTINUE. HOB 30.
[2019-09-12 04:05] LABS: BASOPHILS 0 % (0-2); EOSINOPHILS 1.1 % (0-7); HEMATOCRIT 44.6 % (42.0-54.0); IMMATURE GRANULOCYTES 0.5 % (0-5); LYMPHOCYTES 11.6 % (15-50); MCH 30.5 pg (26.0-34.0); MCHC 31.4 g/dL (31.0-37.0); MEAN PLATELET VOLUME 10.5 fL (7.4-10.4); MONOCYTES 18.3 % (2-11); NEUTROPHILS 68.5 % (40-80); PLATELET COUNT 145 10x3/uL (130-400); RBC 4.59 10x6/uL (4.20-6.10)
[2019-09-12 04:13] LABS: MCV 97.2 fL (80.0-100.0)
[2019-09-12 04:18] LABS: ALBUMIN 2.4 g/dL (3.4-5.0); ALKALINE PHOSPHATASE 45 U/L (46-116); ALT (SGPT) 28 U/L (10-68); BILIRUBIN - TOTAL 0.44 mg/dL (0.2-1.3); CALC OSMOLALITY 281 mosm/kg (275-300); CALCIUM 8.6 mg/dL (8.5-10.1); CARBON DIOXIDE 32.2 mmol/L (21.0-32.0); CHLORIDE - SERUM 105 mmol/L (98-107); GLUCOSE 80 mg/dL (74-106); MAGNESIUM - SERUM 1.9 mg/dL (1.8-2.4); PHOSPHOROUS 3.6 mg/dL (2.5-4.9); POTASSIUM - SERUM 4.3 mmol/L (3.5-5.1); PROTEIN - SERUM 5.9 g/dL (6.4-8.2); SODIUM 141 mmol/L (136-145); UREA NITROGEN 17 mg/dL (7-18); eGFR NON AFRICAN AMERICAN 81 mL/min (90-120)
--- NOTE | 2019-09-12 05:00 | NUR ---
REPOSITIONED ORAL CARE. VSS SEDATION CONTINUES
--- NOTE | 2019-09-12 07:00 | NUR ---
OPENS EYES TO NAME, BILATERAL LUNG SOUNDS EQUAL AND CLEAR. TRACH DRESSING INTACT. NO ACTIVE BLEEDING OR SWELLING NOTED. IV LEFT HAND WITHOUT REDNESS OR SWELLING. ESTES CATH PATENT. NO DISTRESS. TRACH TO VENT. MONITOR SR.
--- NOTE | 2019-09-12 08:24 | NUR ---
TALKED WITH FAMILY UPDATE GIVEN. QUESTIONS BOTTOM PRESSER. PATIENT OPENS HIS EYES FOR FAMILY
--- NOTE | 2019-09-12 09:00 | NUR ---
FAMILY HERE. UPDATES GIVEN. OPENING EYES TO STIMULATION NO DISTRESS. TRACH SITE WITH OUT BLEEDING OR DRAINAGE
--- NOTE | 2019-09-12 11:00 | NUR ---
obeying commands squeezing hands on request. good strong hand staff writer. iv right upper arm infusing with diprivan at 70 mcg/kg/min. left hand infusing with NS AT 75 ML HHOUR. FENTANYL AT 100 MCG/HOUR. NO DISTRESS. TRACH DRESSING DRY AND INTACT. ESTES CATH PATENT. IV'S WITHOUT REDNESS OR SWELLING.
--- NOTE | 2019-09-12 13:00 | NUR ---
REPOSITIONED ON SIDE WITH RESP THERAPY ASSISTANCES. PATIENT TOLERATED WELL. TRACH DRESSING DRY AND INTACT. SUCTION SMALL AMOUNT OF BLOODY SECRETIONS PER TRACH.
--- NOTE | 2019-09-12 19:00 | NUR ---
REPORT RECEIVED, INITIAL ASSESSMENT COMPLETE. PT SEDATED WITH TRACH SECURED WITH STITCHES NO DRAINAGE OR ODOR NOTED CLEAN TO VENT SEE RESP THERAPY NOTES. BREATH SOUNDS CLEAR TO AUSCULTATE O2 SAT 100%. CM READING SR WITHOUT ECTOPY WITH ALARMS ON AND AUDIBLE. SKIN W/D BED IN LOW POSITION SIDE RAILS UP TIMES 3 FOR BED MOBILITY AND SAFETY CL IN REACH VSS WILL CONTINUE TO MONITOR
--- NOTE | 2019-09-12 19:10 | NUR ---
PT DOES HAVE LEFT CHEST WALL INFUSAPORT NOT ACCESSED
--- NOTE | 2019-09-12 20:00 | NUR ---
FAMILY AT BEDSIDE FOR VISITATION
--- NOTE | 2019-09-12 23:00 | NUR ---
REASSESSMENT COMPLETE. NO CHANGES VSS CPOC
[2019-09-13] VITALS (24 sets, daily range): BP systolic 101–157; BP diastolic 56–97
--- NOTE | 2019-09-13 03:00 | NUR ---
REASSESSMENT COMPLETE. CPOC VSS
[2019-09-13 05:05] LABS: BASOPHILS 0.1 % (0-2); EOSINOPHILS 0.4 % (0-7); HEMATOCRIT 44.4 % (42.0-54.0); HEMOGLOBIN 14.5 g/dL (13.5-17.5); IMMATURE GRANULOCYTES 0.6 % (0-5); LYMPHOCYTES 9.6 % (15-50); MCH 31.5 pg (26.0-34.0); MCHC 32.7 g/dL (31.0-37.0); MCV 96.5 fL (80.0-100.0); MEAN PLATELET VOLUME 10.5 fL (7.4-10.4); MONOCYTES 13.8 % (2-11); NEUTROPHILS 75.5 % (40-80); PLATELET COUNT 144 10x3/uL (130-400); RDW 15.2 % (11.5-14.5)
[2019-09-13 05:11] LABS: WBC 14.1 10x3/uL (4.8-10.8)
[2019-09-13 05:22] LABS: ANION GAP 9.9 mmol/L (8-16); BILIRUBIN - TOTAL 0.83 mg/dL (0.2-1.3); CALCIUM 7.9 mg/dL (8.5-10.1); CARBON DIOXIDE 29.3 mmol/L (21.0-32.0); POTASSIUM - SERUM 4.2 mmol/L (3.5-5.1)
[2019-09-13 05:31] LABS: ALBUMIN 2.3 g/dL (3.4-5.0); CREATININE - SERUM 1.3 mg/dL (0.6-1.3); PROTEIN - SERUM 6.2 g/dL (6.4-8.2)
--- NOTE | 2019-09-13 05:50 | NUR ---
SISTER HERE FOR VISITATION
--- NOTE | 2019-09-13 07:00 | NUR ---
OPENS EYES TO VERBAL STIMULI. SKIN WARM AND DRY. TRACH INTACT OLD BLOOD ON DRESSING COUGHING UP BLOODY CLOTS AND MUCOUSY BLOODY SPUTUM. GOOD COUGH REFLEX. BILATERAL LUNG SOUNDS EQUAL AND CLEAR. IV RIGHT UPPER ARM INFUSING WITH DIPRIVAN AT 70 MCG/KG/MIN. PROCALAMINE INFUSING AT 75 ML HOUR IN LEFT HAND NO SWELLING OR REDNESS NOTED. ESTES CATH PATENT. MONITOR ST. NO DISTRESS.
--- NOTE | 2019-09-13 09:00 | NUR ---
FAMILY HERE UPDATE GIVEN. PATIENT REPOSITIONED. HAND FINISHER DENTURE EQUAL. NODES HEAD TO QUESTIONS. GOOD COUGH REFLEX SUCTIONING BLOODY CLOTS PER TRACH. ORAL CARE HEAD OF BED ELEVATED 30 DEGREES.
--- NOTE | 2019-09-13 11:00 | NUR ---
REPOSITIONED. COUGHING UP DARK RED BLOODY SPUTUM WITH CLOTS. IV PATENT WITHOUT REDNESS OR SWELLING. MONITOR ST.
--- NOTE | 2019-09-13 13:00 | NUR ---
FAMILY HERE UPDATE GIVEN.DR. DELEON AND DR. KING NOTIFIED OF SINUS TACHYCARDIA UP TO THE 130'S. NO NEW ORDERS. NO DISTRESS. REPOSITIONED. HEAD OF BED ELEVATED. OLD BLOOD ON TRACH DRESSING. MINIMAL FRESH BLOOD AROUND TRACH SITE.
--- NOTE | 2019-09-13 14:55 | NUR ---
TAKING OVER CARE OF PT FROM ANAIS VALENCIA. PT RESTING QUIETLY. NEW PROCALAMINE HANGING AT 75ML/HR. PT RESTING COMFORTABLY. VSS. PROPOFOL AND FENTANYL INFUSING. ESTES IN PLACE. IV TO LEFT HAND AND RIGHT UPPER ARM. WILL CONTINUE TO MONITOR.
--- NOTE | 2019-09-13 16:45 | NUR ---
DISCUSSED PLANNED PROCEDURE EGD WITH PEG WITH FAMILY. THEY ALL CONSENTED FOR PROCEDURE. PT SEDATED. VSS. PT REPOSITIONED. NO COMPLAINTS OR NEEDS AT THIS TIME. WILL CONTINUE TO MONITOR.
--- NOTE | 2019-09-13 17:48 | NUR ---
PT REPOSITIONED. VSS. WILL CONTINUE TO MONITOR.
--- NOTE | 2019-09-13 19:00 | NUR ---
REPORT RECEIVED. INITIAL ASSESSMENT COMPLETE. PT SEDATED DOES OPEN EYES. O2 VENT VIA TRACH SEE RESP THERAPY NOTES, O2 SAT 98%. CM READING ST 116 PTS HEART RATE DOES GET UP TO 130'S MD'S AWARE PER DAY SHIFT REPORT. CM ALARMS ON AND AUDIBLE.PT HAS A LEFT CHEST WALL INFUSAPORT NOT ACCESSED. ESTES DRAINING YELLOW URINE. SKIN W/D PPP. BED IN LOW POSITION HOB 30 DEGREES SR UP TIMES 3 FOR BED MOBILITY AND SAFETY. CPOC
--- NOTE | 2019-09-13 20:00 | NUR ---
FAMILY AT BEDSIDE FOR VISITATION QUESTIONS ANSWERED AND UPDATE GIVEN. VSS CPOC
--- NOTE | 2019-09-13 21:00 | NUR ---
PTS VENT ALARMING SUCTIONED COPIOUS AMOUNT OF CLEAR SECRETIONS ORALLY AND SMALL AMOUNT ETT.
--- NOTE | 2019-09-13 23:00 | NUR ---
REASSESSMENT COMPLETE NO CHANGES VSS CPOC. NO DISTRESS NOTED.
[2019-09-14] VITALS (32 sets, daily range): BP systolic 110–149; BP diastolic 57–86
--- NOTE | 2019-09-14 01:30 | NUR ---
RT ASKING FOR ASSISTANCE PT TRACH SITE BLEEDING AFTER CHANGING OUT GAUZE. PT HAD BRIGHT RED BLOOD WITH CLOTS HAD SOAKED THE DRAIN SPONGE AND THE TRACH TIE. ASSISTED RT WITH CLEANING TRACH SITE AN NEW TRACH TIES. WILL CONTINUE TO MONITOR
--- NOTE | 2019-09-14 03:00 | NUR ---
REASSESSMENT COMPLETE BLEEDING HAD STOPPED AT TRACH SITE NO CHANGES VSS CPOC
[2019-09-14 03:09] LABS: BASOPHILS 0.1 % (0-2); EOSINOPHILS 0.3 % (0-7); HEMATOCRIT 42.2 % (42.0-54.0); HEMOGLOBIN 13.7 g/dL (13.5-17.5); IMMATURE GRANULOCYTES 0.6 % (0-5); LYMPHOCYTES 3.7 % (15-50); MCH 31.1 pg (26.0-34.0); MCHC 32.5 g/dL (31.0-37.0); MCV 95.9 fL (80.0-100.0); MEAN PLATELET VOLUME 10.2 fL (7.4-10.4); MONOCYTES 11.6 % (2-11); NEUTROPHILS 83.7 % (40-80); PLATELET COUNT 137 10x3/uL (130-400); RDW 15.1 % (11.5-14.5); WBC 19.2 10x3/uL (4.8-10.8)
[2019-09-14 03:40] LABS: ALBUMIN 2.2 g/dL (3.4-5.0); ANION GAP 9.5 mmol/L (8-16); BILIRUBIN - TOTAL 0.54 mg/dL (0.2-1.3); CALCIUM 8.7 mg/dL (8.5-10.1); CARBON DIOXIDE 27.9 mmol/L (21.0-32.0); CREATININE - SERUM 1.1 mg/dL (0.6-1.3); POTASSIUM - SERUM 4.4 mmol/L (3.5-5.1); PROTEIN - SERUM 6.4 g/dL (6.4-8.2)
--- NOTE | 2019-09-14 03:45 | NUR ---
RADIOLOGY HERE FOR CHEST XRAY
--- NOTE | 2019-09-14 07:15 | NUR ---
REPORT RECEIVED. PT RESTING QUIETLY. PT HAS TRACH HOOKED UP TO VENT. PT HAS IV TO LEFT HAND AND RIGHT UPPER ARM WITH FENTANYL, PROPOFOL, AND PROCALAMINE INFUSING. PT HAS ESTES. PT IS TO HAVE PEG PLACED THIS AM. VSS. WILL CONTINUE TO MONITOR.
--- NOTE | 2019-09-14 08:10 | NUR ---
PEG PLACED BEDSIDE BY DR SARGENT. PT TOLERATED WELL. BOLUSED PROPOFOL AND FENTANYL FOR SEDATION. VSS.
--- NOTE | 2019-09-14 08:45 | NUR ---
NEW G-TUBE FLUSHED WITH 20ML OF WATER PER DR SARGENT. TO FLUSH EVERY 12 HOURS AND START TUBE FEEDINGS TOMORROW PER CARDIAC RN'S RECOMMENDATIONS. WILL CONTINUE TO MONITOR.
--- NOTE | 2019-09-14 09:12 | NUR ---
Nutrition follow-up: Pt intubated; trach NPO for PEG tube placement today Labs reviewed Wt: 154# Wehn PEG tube ready for use, recommend: Jevity 1.2 guido @ 25 ml/hr with gradual increase to goal rate of 60 ml/hr with 100 ml H2O flush Q 4 hours RDN following.
--- NOTE | 2019-09-14 09:29 | NUR ---
PT RESTING QUIETLY. AM MEDS GIVEN. VSS. WILL CONTINUE TO MONITOR.
--- NOTE | 2019-09-14 11:15 | NUR ---
PT RESTING QUIETLY. REASSESSMENT COMPLETED. VSS. WILL CONTINUE TO MONITOR.
--- NOTE | 2019-09-14 13:27 | NUR ---
FAMILY AT BEDSIDE. UPDATED. PT SUCTIONED BY RT. VSS.
--- NOTE | 2019-09-14 19:00 | NUR ---
SHIFT ASSESSMENT COMPLETED. PT CARE ASSUMED. MONITORS ON AND WORKING, VITALS STABLE, SEE FLOW SHEET FOR FURTHER DETAILS. WILL CONTINUE TO OBSERVE.
--- NOTE | 2019-09-14 21:00 | NUR ---
FAMILY AT BEDSIDE, UPDATE PROVIDED, NO SIGNS/SYMPTOMS OF PAIN OR DISCOMFORT NOTED. PT SEDATED ON VENT VIA TRACH. WILL CONTINUE TO OBSERVE.
--- NOTE | 2019-09-14 23:00 | NUR ---
NO CHANGES, SEE FLOW SHEET FOR FURTHER DETAILS. MONITORS ON AND WORKING, VITALS STABLE.
[2019-09-15] VITALS (24 sets, daily range): BP systolic 117–198; BP diastolic 64–88
--- NOTE | 2019-09-15 01:00 | NUR ---
PT REPOSITIONED, ORAL CARE PROVIDED, MONITORS ON AND WORKING, WILL CONTINUE TO OBSERVE.
--- NOTE | 2019-09-15 03:00 | NUR ---
NO CHANGES, SEE FLOW SHEET FOR FURTHER DETAILS, MONITORS ON AND WORKING, VITALS STABLE, WILL CONTINUE TO OBSERVE.
--- NOTE | 2019-09-15 05:00 | NUR ---
COMPLETE LINEN CHANGE AND BED BATH DONE AT THIS TIME, MONITORS ON AND WORKING VITALS STABLE. WILL CONTINUE TO OBSERVE.
--- NOTE | 2019-09-15 07:15 | NUR ---
REPORT RECEIVED. PT HAD CHG BATH. HAS TRACH STILL HOOKED UP TO VENT. SEDATED ON PROPOFOL AND FENTANYL. IV TO LEFT HAND AND RIGHT HAND. ESTES IN PLACE. VSS. HEAD TO TOE ASSESSMENT PERFORMED. WILL CONTINUE TO MONITOR.
[2019-09-15 07:46] LABS: BASOPHILS 0.1 % (0-2); EOSINOPHILS 1.1 % (0-7); HEMATOCRIT 41.3 % (42.0-54.0); HEMOGLOBIN 13.3 g/dL (13.5-17.5); IMMATURE GRANULOCYTES 0.5 % (0-5); LYMPHOCYTES 5.6 % (15-50); MCH 30.7 pg (26.0-34.0); MCHC 32.2 g/dL (31.0-37.0); MCV 95.4 fL (80.0-100.0); MEAN PLATELET VOLUME 10.3 fL (7.4-10.4); MONOCYTES 10.8 % (2-11); NEUTROPHILS 81.9 % (40-80); PLATELET COUNT 127 10x3/uL (130-400); RBC 4.33 10x6/uL (4.20-6.10); WBC 16.6 10x3/uL (4.8-10.8)
[2019-09-15 08:04] LABS: ALBUMIN 2.1 g/dL (3.4-5.0); ALKALINE PHOSPHATASE 48 U/L (46-116); ALT (SGPT) 19 U/L (10-68); BILIRUBIN - TOTAL 0.45 mg/dL (0.2-1.3); CALC OSMOLALITY 275 mosm/kg (275-300); CALCIUM 9.1 mg/dL (8.5-10.1); CARBON DIOXIDE 28.9 mmol/L (21.0-32.0); CHLORIDE - SERUM 102 mmol/L (98-107); GLUCOSE 107 mg/dL (74-106); POTASSIUM - SERUM 4.4 mmol/L (3.5-5.1); PROTEIN - SERUM 6.7 g/dL (6.4-8.2); SODIUM 136 mmol/L (136-145); UREA NITROGEN 23 mg/dL (7-18); eGFR NON AFRICAN AMERICAN 81 mL/min (90-120)
--- NOTE | 2019-09-15 08:04 | NUR ---
NUTRITION F/U PER MD CONSULT PEG TUBE FEED ORDERS WRITTEN. JEVITY 1.2 WITH GOAL RATE 60 CC/HR. 100 CC H2O FLUSH Q 4 HOURS. WILL NEED TO TAPER AND DC PROCALAMINE TUBE FEEDS ADVANCE. RD FOLLOWING
--- NOTE | 2019-09-15 08:49 | NUR ---
JEVITY 1.2 TUBE FEEDING STARTED AT 25 ML/HR WITH 100ML FLUSH Q4H. FAMILY AT BEDSIDE. UPDATED. VSS. WILL CONTINUE TO MONITOR.
--- NOTE | 2019-09-15 10:27 | NUR ---
PT RESTING QUIETLY WITH VSS. WILL CONTINUE TO MONITOR.
--- NOTE | 2019-09-15 12:00 | NUR ---
MEDICATIONS GIVEN. NO ISSUES WITH TUBE FEED. VSS. WILL CONTINUE TO MONITOR.
--- NOTE | 2019-09-15 13:25 | NUR ---
RESP THERAPIST IN DOING TRACH CARE AT THIS TIME. VSS. WILL CONTINUE TO MONITOR.
--- NOTE | 2019-09-15 15:40 | NUR ---
WEANING PROPOFOL DOWN. NOW AT 50MCG/KG/HR. PT RESTING QUIETLY. VSS. REPOSITIONED. WILL CONTINUE TO MONITOR.
--- NOTE | 2019-09-15 17:47 | NUR ---
PT SUCTIONED AND REPOSITIONED. RESIDUAL LESS THAN 40ML IN G-TUBE. JEVITY 1.2 AT 25ML/HR. VSS. WILL CONTINUE TO MONITOR.
--- NOTE | 2019-09-15 19:15 | NUR ---
REPORT RECEIVED, PT SEDATED, OPENS EYES. PIV IN RT HAND, LT HAND, INFUSING, SEE FLOWSHEET. ASSESSMENT COMPLETED, SEE FLOWSHEET. IMPLANTED PORT ON LEFT UPPER CHEST, UNACCESSED. PEG TUBE IN LEFT ABDOMEN, CDI. TRACH COLLAR IN PLACE. BLOOD CLOTS ON TRACH SITE, NOT REMOVED DUE TO R/O BLEEDING. DRESSING CDI. SOFT WRIST RESTRAINTS IN PLACE, WILL CONTINUE TO MONITOR.
--- NOTE | 2019-09-15 21:00 | NUR ---
PT AGITATED, FAMILY AT BEDSIDE.
--- NOTE | 2019-09-15 23:00 | NUR ---
PT SEDATED, OPENS EYES. NO ACUTE DISTRESS NOTED AT THIS TIME. WILL CONTINUE TO MONITOR.
[2019-09-16] VITALS (36 sets, daily range): BP systolic 102–186; BP diastolic 49–94
--- NOTE | 2019-09-16 01:00 | NUR ---
PT SEDATED, OPENS EYES. NO ACUTE DISTRESS NOTED AT THIS TIME. DRESSING SATURATED WITH BLOOD, NEW DRESSING APPLIED AROUND TRACH.
--- NOTE | 2019-09-16 03:00 | NUR ---
PT SEDATED, TEMPERATURE 98.6 ORALLY. NODS YES AND NO TO QUESTIONS, WILL CONTINUE TO MONITOR.
[2019-09-16 04:18] LABS: BASOPHILS 0.1 % (0-2); EOSINOPHILS 0.9 % (0-7); HEMATOCRIT 41.6 % (42.0-54.0); HEMOGLOBIN 13.5 g/dL (13.5-17.5); IMMATURE GRANULOCYTES 0.4 % (0-5); LYMPHOCYTES 8.7 % (15-50); MCH 30.8 pg (26.0-34.0); MCHC 32.5 g/dL (31.0-37.0); MEAN PLATELET VOLUME 10.7 fL (7.4-10.4); MONOCYTES 12.6 % (2-11); NEUTROPHILS 77.3 % (40-80); RBC 4.38 10x6/uL (4.20-6.10); RDW 14.8 % (11.5-14.5); WBC 13.4 10x3/uL (4.8-10.8)
[2019-09-16 04:21] LABS: PLATELET COUNT 169 10x3/uL (130-400)
[2019-09-16 04:31] LABS: ALBUMIN 2.1 g/dL (3.4-5.0); ALKALINE PHOSPHATASE 54 U/L (46-116); BILIRUBIN - TOTAL 0.76 mg/dL (0.2-1.3); CALC OSMOLALITY 262 mosm/kg (275-300); CALCIUM 8.7 mg/dL (8.5-10.1); CARBON DIOXIDE 31.2 mmol/L (21.0-32.0); CHLORIDE - SERUM 95 mmol/L (98-107); CREATININE - SERUM 0.8 mg/dL (0.6-1.3); POTASSIUM - SERUM 4.5 mmol/L (3.5-5.1); PROTEIN - SERUM 6.6 g/dL (6.4-8.2); SODIUM 129 mmol/L (136-145); UREA NITROGEN 25 mg/dL (7-18); eGFR NON AFRICAN AMERICAN > 90 mL/min (90-120)
--- NOTE | 2019-09-16 04:45 | NUR ---
PT RESIDUAL 410 CC, TUBE FEEDING STOPPED AT THIS MOMENT.
[2019-09-16 05:01] LABS: ALT (SGPT) 24 U/L (10-68)
[2019-09-16 05:02] LABS: GLUCOSE 91 mg/dL (74-106)
--- NOTE | 2019-09-16 05:45 | NUR ---
PT RESIDUAL RECHECKED, 60 CC'S PULLED BACK.
--- NOTE | 2019-09-16 06:22 | NUR ---
DR KIRBY PAGED REGARDING RESIDUALS, AWAITING CALL BACK.
--- NOTE | 2019-09-16 06:26 | NUR ---
RECEIVED CALL FROM DR KIRBY, UPDATED ON PT STATUS, NEW ORDERS RECEIVED.
--- NOTE | 2019-09-16 07:00 | NUR ---
PT REPORT RECEIVED FROM PATENT COUNSEL NURSE. NO VISIBLE SIGNS OF DISTRESS NOTED. SHIFT ASSESSMENT COMPLETED. WILL CONTINUE TO MONITOR
--- NOTE | 2019-09-16 09:00 | NUR ---
PT RESTING IN BED. FAMILY AT BEDSIDE. NO COMPLAINTS NOTED AT THIS TIME. VSS. WILL CONTINUE TO MONITOR
--- NOTE | 2019-09-16 09:26 | NUR ---
NUTRITION F/U PT WITH HI TUBE FEED RESIDUALS. JEVITY 1.2 CURRENTLY OFF. MAY BENEFIT FROM MOTILITY AGENT. RD FOLLOWING
--- NOTE | 2019-09-16 09:34 | NUR ---
PT UNABLE TO TOLERATE TAKING PO MEDS. CURRENLTY HAVE G-TUBE TO GRAVITY DRAINAGE DUE TO LARGE RESIDUAL VOLUMES.
--- NOTE | 2019-09-16 11:00 | NUR ---
PT RESTING IN BED. NO VISIBLE SIGNS OF DISTRESS NOTED. VSS. REASSESSMENT COMPLETED AT THIS TIME. WILL CONTINUE TO MONITOR
--- NOTE | 2019-09-16 12:00 | NUR ---
DR HIGGINS ORDERED SEDATION TURNED OFF TO TRY TO WEAN PT OFF VENT.
--- NOTE | 2019-09-16 12:21 | CN ---
PATIENT NAME:DANIKA CORONA MEDICAL RECORD: [id number] : 58 LOCATION:[facility].2303 ADMIT DATE: 09/05/19 ACCOUNT: [id number] CONSULTING PHYSICIAN: KERRY DESAI MD REFERRING PHYSICIAN: MOON KING MD DATE OF CONSULTATION: 09/09/2019 CONSULT FROM: Dr. Bowman. REASON FOR THE CONSULT: Hoarseness and laryngeal mass. HISTORY: Mr. Corona has a history of smoking and a history of lung cancer. He has had progressive hoarseness. CT of the neck showed laryngeal fullness, possible mass. I reviewed his history on the chart. He was a good historian as well. PHYSICAL EXAMINATION: GENERAL: He is healthy-appearing, alert, oriented, cooperative, extremely hoarse voice kind of rough sounding, but really no stridor. FACE: Normal, symmetric, no lesions. EARS: Canals and TMs are normal. NOSE: No masses, polyps, or drainage. A little bit of right septal deviation. ORAL CAVITY AND OROPHARYNX: Tongue protrudes in the midline. No trismus. Pharynx is normal. NECK: No masses, no adenopathy, no thyromegaly, maybe a little bit of jugular venous distention. His flexible laryngoscopy through the nose revealed nasal cavity is normal. No lesions, masses, or polyps. Nasopharynx was normal and smooth. The hypopharynx, vallecula, base of tongue are normal. Supraglottic larynx was somewhat normal. The AE folds, arytenoids, and epiglottis was normal, but there was fullness at the level of the false cords and true cords. He had a lot of fullness in the left hemilarynx that was basically fixed, close to the midline position. No visible cord. The right side certainly not a normal cord, but there was a little bit of mobility there and extremely narrow glottic airway. Subglottis could not be evaluated. It looked like a tumor on the surface of the right cord along its entire length all the way to the vocal processing the arytenoid as well. 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 We will get him on the schedule for tomorrow. This dictation will be for the for direct laryngoscopy and biopsy, possible tracheotomy. TRANSINT:[id number] Voice Confirmation ID: [id number] DOCUMENT ID: [id number] CONSULT REPORT [id number] DANIKA CORONA ERIC MD at 1221 CC: [id number] DICTATION DATE: 09/10/19921 GENERAL OPERATIONS MANAGER: 09/10/19937 ADM IN [facility] [place] [id number] [place] [address]
--- NOTE | 2019-09-16 12:21 | OP ---
PATIENT NAME: DANIKA WILSON MEDICAL RECORD: [id number] :58 LOCATION:.[facility] D.2303 ADMISSION DATE:09/05/19 SURGEON: KERRY WARNER MD DATE OF OPERATION: 09/10/2019 PREOPERATIVE DIAGNOSIS: Larynx mass. POSTOPERATIVE DIAGNOSIS: Larynx mass. PROCEDURE: Direct laryngoscopy and biopsies and tracheotomy. SURGEON: Kerry Warner MD ANESTHESIA: General orotracheal. BLOOD LOSS: Less than 5 cc. SPECIMENS: Multiple biopsies of the larynx at the level of the true and false cords. TRACH TUBE: A #6 low pressure cuff Shiley trach tube. COMPLICATIONS: None. DISPOSITION: ICU, stable. DESCRIPTION OF PROCEDURE: He was brought to the operating room and placed in supine position and then sedated and intubated by anesthesia. Intubation was quite difficult. He was difficult to expose and to view. A 5-1/2 tube with exceptionally tight to force through the glottic opening. The glottic opening was not too hard to visualize, although there was no normal anatomy there, but it was extremely tight. At this point, because there was really no normal anatomy at the level of the glottis and it was so restricted, there was no way to safely extubate him, especially with a probable diagnosis of larynx cancer and needing treatment for that. We decided to do a tracheotomy. The neck was prepped and draped in the usual fashion. A horizontal incision was made between the cricoid and the sternal notch. This was taken down through subcutaneous tissue and strap muscles. They were divided in the midline. Tonsil clamp was used to divide the plains with a spatula tip cautery on a setting of 10. The thyroid was exposed. The thyroid isthmus was lifted up with a tonsil clamp and divided with cautery. This exposed the anterior trachea. Some of the thin fascia was divided with cautery as well. The cricoid was palpated. The third tracheal ring, a little bit high, was isolated. After his oxygen was turned down, a cut was made above and below that ring. It was grasped with a clamp and Ritesh were used to cut this both sides that and remove for a small window. The tube was visualized with suction. The airway was clear. There was no blood in the airway. The tube was backed out and a #6 Shiley was placed. The first trach tube, the cuff popped, so a second trach tube was placed. He was ventilated through the trach tube while the cuff was inflated, end-tidal was confirmed. He did well with that. That was then sutured in place and a trach tie was placed around the neck. Then, the table was turned. He was positioned for laryngoscopy and biopsy. A plastic upper tooth guard was placed. A Kleinsasser Afia. laryngoscope was used to examine the posterior pharyngeal wall, lateral pharyngeal walker, vallecula, base of tongue, epiglottis, everything was really unremarkable. There was just general edema to the AE folds and to the OPERATIVE REPORT [id number] WILSON,DANIKA R arytenoids and to the postcricoid area, but no erythema. On looking at the larynx itself, the left side again, no discernible landmarks. It was basically fixed in the midline. On lifting that up, there was an ulcerated area around where the false and true cord would be anteriorly on that left side, but no visible cord at all on the left side. The right side tumor extended down at least two-thirds of that right cord with no visible real vocal cord there, just tumor. There was a little bit of normal appearing posterior true cord, but not much and no normal false cord on that right side either. Tumor did not really extend up the epiglottis. It probably encompassed the petiole and entire left hemilarynx. Multiple biopsies were taken with upbiting 4 mm cup forceps. Frozen section returned invasive squamous cell carcinoma. I did get past the cords and visualized the trach tube. There was really no significant subglottic extension. This was really mostly at the level of the glottis and the false cords. Laryngoscope was removed. The pharynx was suctioned. He was transported to ICU in stable condition. TRANSINT:[id number] Voice Confirmation ID: [id number] DOCUMENT ID: [id number] KERRY WARNER MD at 1221 CC: [id number] DICTATION DATE: 09/10/19926 WASH OPERATOR: 09/10/19947 ADM IN [facility] [address] [place] [address]
--- NOTE | 2019-09-16 13:00 | NUR ---
PT RESTING IN BED. FAMILY AT BEDSIDE. NO VISIBLE SIGNS OF DISTRESS NOTED. PT COUGHING MORE NOW. VSS. WILL CONTINUE TO MONITOR
--- NOTE | 2019-09-16 15:00 | NUR ---
PT RESTING IN BED. REASSESSMENT COMPLETED. NO VISIBLE SIGNS OF DISTRESS NOTED. VSS. WILL CONTINUE TO MONITOR
--- NOTE | 2019-09-16 17:00 | NUR ---
PT RESTING IN BED. SEDATION IS ON. NO VISIBLE SIGNS OF DISTRESS NOTED AT THIS TIME. VSS. WILL CONTINUE TO MONITOR
--- NOTE | 2019-09-16 19:15 | NUR ---
REPORT RECEIVED, PT SEDATED, OPENS EYES. ASSESSMENT COMPLETED, SEE FLOWSHEET. RT HAND, LT HAND PIV INFUSING, SEE FLOWSHEET. PEG TUBE TO GRAVITY DRAINAGE, PT ON VENT. NO ACUTE DISTRESS AT THIS TIME, WILL CONTINUE TO MONITOR.
--- NOTE | 2019-09-16 21:00 | NUR ---
PT STARTED BACK ON TUBE FEEDING JEVITY 1.2 AT 10 ML/HR. RESIDUALS PRODUCED 10ML BEFORE STARTING TUBE FEEDING. FAMILY AT BEDSIDE, WILL CONTINUE TO MONITOR.
--- NOTE | 2019-09-16 23:00 | NUR ---
PT SEDATED, OPENS EYES. NO ACUTE DISTRESS NOTED AT THIS TIME, WILL CONTINUE TO MONITOR.
[2019-09-17] VITALS (47 sets, daily range): BP systolic 95–175; BP diastolic 55–92
--- NOTE | 2019-09-17 01:00 | NUR ---
PT SEDATED, OPENS EYES. NO ACUTE DISTRESS NOTED AT THIS TIME, WILL CONTINUE TO MONITOR.
--- NOTE | 2019-09-17 03:00 | NUR ---
PT SEDATED, FOLLOWS COMMANDS. PARTIAL LINEN CHANGE, NO ACUTE DISTRESS NOTED AT THIS TIME.
--- NOTE | 2019-09-17 05:00 | NUR ---
PT SEDATED, FOLLOWS COMMANDS. FAMILY AT BEDSIDE. PULLED BACK 10 RESIDUAL FROM PEG TUBE, ADVANCED TUBE FEEDS TO 15 ML/HR. WILL CONTINUE TO MONITOR.
--- NOTE | 2019-09-17 07:00 | NUR ---
PT REPORT RECEIVED FROM KEG FILLER NURSE. NO VISIBLE SIGNS OF DISTRESS NOTED. SHIFT ASSESSMENT COMPLETED. WILL CONTINUE TO MONITOR
--- NOTE | 2019-09-17 09:00 | NUR ---
PT RESTING IN BED. SEDATION TURNED OFF PER DR HIGGINS. PT STARTED ON PRESSURE SUPPORT ON VENT.
--- NOTE | 2019-09-17 09:45 | NUR ---
PT HAD BM ON BEDPAN. ALL LIQUID STOOL. PT TOLERATED TURNING AND CLEANING WELL. WILL CONTINUE TO MONITOR
--- NOTE | 2019-09-17 11:00 | NUR ---
PT RESTING IN BED. REASSESSMENT COMPLETED AT THIS TIME. VSS. WILL CONTINUE TO MONITOR
--- NOTE | 2019-09-17 11:33 | NUR ---
SWITCH TO AC ON VENT. PATIENT HR 140 AND RR 45.
--- NOTE | 2019-09-17 13:00 | NUR ---
PT RESTING IN BED. FAMILY AT BEDSIDE. NO VISIBLE SIGNS OF DISTRESS NOTED. WILL CONTINUE TO MONITOR
--- NOTE | 2019-09-17 15:00 | NUR ---
PT RESTING IN BED. REASSESSMENT COMPLETED AT THIS TIME. VSS. NO VISIBLE SIGNS OF DISTRESS NOTED. WILL CONTINUE TO MONITOR
--- NOTE | 2019-09-17 16:51 | NUR ---
PT RESTING IN BED. FAMILY AT BEDSIDE. NO VISIBLE SIGNS OF DISTRESS NOTED. VSS. WILL CONTINUE TO MONITOR
--- NOTE | 2019-09-17 19:00 | NUR ---
SHIFT ASSESSMENT COMPLETED, PT CARE ASSUMED, MONITORS ON AND WORKING, VITALS STABLE, VENT SETTINGS NOTED. SEE FLOW SHEET FOR FURTHER DETAILS, WILL CONTINUE TO OBSERVE.
--- NOTE | 2019-09-17 21:00 | NUR ---
PT TURNED AND REPOSITIONED FOR COMFORT, ORAL CARE PROVIDED AT THIS TIME, MONTORS ON AND WORKING, WILL CONTINUE TO OBSERVE.
--- NOTE | 2019-09-17 23:00 | NUR ---
PT TURNED AND REPOSITIONED FOR COMFORT, MONITORS ON AND WORKING, VITALS STABLE, SEE FLOW SHEET FOR FURTHER DETAILS, WILL CONTINUE TO OBSERVE.
[2019-09-18] VITALS (41 sets, daily range): BP systolic 86–167; BP diastolic 49–98
--- NOTE | 2019-09-18 01:00 | NUR ---
PT TURNED AND REPOSITIONED FOR COMFORT, MONITORS ON AND WORKING, VITALS STABLE, WILL CONTINUE TO OBSERVE.
--- NOTE | 2019-09-18 03:00 | NUR ---
PT TURNED AND REPOSITIONED FOR COMFORT, MONITORS ON AND WORKING, VITALS STABLE, SEE FLOW SHEET FOR FURTHER DETIALS. WILL CONTINUE TO OBSERVE.
--- NOTE | 2019-09-18 05:00 | NUR ---
NO CHANGES, PT TURNED AND REPOSITIONED FOR COMFORT, MONITORS ON AND WORKING, VITALS STABLE. WILL CONTINUE TO OBSERVE.
--- NOTE | 2019-09-18 07:00 | NUR ---
PT REPORT RECEIVED FROM TELEMARKETING SALES REPRESENTATIVE NURSE. SHIFT ASSESSMENT COMPLETED. NO VISIBLE SIGNS OF DISTRESS NOTED. WILL CONTINUE TO MONITOR
--- NOTE | 2019-09-18 08:11 | NUR ---
NUTRITION F/U TOLERATING JEVITY 1.2 TUBE FEEDS AT 15 CC/HR. CONTINUES PROCALAMINE AT 75 CC/HR. WILL CONTINUE TO MONITOR PT PROGRESS. RD FOLLOWING
--- NOTE | 2019-09-18 09:00 | NUR ---
ORDER PER DR HIGGINS TO START PRESSURE SUPPORT ON VENT. SEDATION WAS WEANED OFF. FENTANYL WAS LEFT ON PER DR HIGGINS. WILL CONTINUE TO MONITOR
--- NOTE | 2019-09-18 10:00 | NUR ---
PT GIVEN A CHG BATH. TOLERATED WELL. ALSO HAD A BM. DIARRHEA STOOL.
--- NOTE | 2019-09-18 11:00 | NUR ---
PT RESTING IN BED. REASSESSMENT COMPLETED. NO VISIBLE SIGNS OF DISTRESS NOTED. WILL CONTINUE TO MONITOR
--- NOTE | 2019-09-18 12:30 | NUR ---
PT REQUESTED TO GO BACK ON SEDATION TO REST. VENT SETTINGS CHANGED OVER AND SEDATION WAS STARTED BACK. WILL CONTINUE TO MONITOR
--- NOTE | 2019-09-18 13:00 | NUR ---
PT RESTING IN BED COMFORTABLY. NO VISIBLE SIGNS OF DISTRESS NOTED. AROUSES EASILY BUT DRIFTS BACK TO SLEEP QUICKLY. WILL CONTINUE TO MONITOR
--- NOTE | 2019-09-18 15:00 | NUR ---
PT RESTING IN BED. REASSESSMENT COMPLETED. NO VISIBLE SIGNS OF DISTRESS NOTED. WILL CONTINUE TO MONITOR
[2019-09-18 16:40] LABS: CALC OSMOLALITY 277 mosm/kg (275-300); CALCIUM 9.2 mg/dL (8.5-10.1); CARBON DIOXIDE 28.8 mmol/L (21.0-32.0); CHLORIDE - SERUM 99 mmol/L (98-107); GLUCOSE 115 mg/dL (74-106); POTASSIUM - SERUM 3.5 mmol/L (3.5-5.1); SODIUM 134 mmol/L (136-145); UREA NITROGEN 38 mg/dL (7-18); eGFR NON AFRICAN AMERICAN 81 mL/min (90-120)
--- NOTE | 2019-09-18 16:58 | NUR ---
PT RESTING IN BED. FAMILY IN TO VISIT PT. NO VISIBLE SIGNS OF DISTRESS NOTED AT THIS TIME. VSS. WILL CONTINUE TO MONITOR
--- NOTE | 2019-09-18 19:00 | NUR ---
REPORT RECEIVED INITIAL ASSESSMENT COMPLETE. PT AWAKE FOLLOWS COMMANDS ATTEMPTING TO TALK DENIES PAIN OR SOB NODS HEAD YES TO NEED FOR SUCTIONING. SUCTIONED VIA TRACH MINIMAL BLOOD TINGED SECRETIONS. CM READING ST WITH OCC PVC'S. BAKER PIE ALARMS ON AND AUDIBLE. SIZE 6 TRACH WITH MINIMAL BLEEDING AT TRACH SITE SECURED WITH TRACH TIE. CONNECTED TO VENT AC SETTING SEE RESP NOTES AND FLOWSHEETS. BREATH SOUNDS CLEAR TO AUSCULTATE O2 SAT 99% ABD DISTENDED PT DENIES PAIN DOES NOD HEAD YES TO QUESTION OF GAS AND FEELING FULL. TF VIA PEG MINIMAL TO NO RESIDUAL OBTAINED FLUSHED PEG WITH WATER FLUSHES EASILY. SKIN W/D PPP. PIV X2 PATENT DRESSING TO LEFT HAND FROM PREVIOUS IV SITE LEFT ARM AND HAND SWOLLEN MD AWARE ELEVATED WITH PILLOWS. CPOC VSS WILL CONTINUE TO MONITOR
--- NOTE | 2019-09-18 20:00 | NUR ---
FAMILY AT BEDSIDE FOR VISITATION UPDATED AND QUESTIONS ANSWERED
--- NOTE | 2019-09-18 21:15 | NUR ---
PTS SISTER OUT TO NURSES STATION STATING PT NEEDING TO USE BATHROOM REQUESTING BED MUNOZ. ASSISTED PT TO BEDPAN
--- NOTE | 2019-09-18 23:00 | NUR ---
REASSESSMENT MADE PT SEDATED OPENS EYES SPONTANEOUSLY AND TO VERBAL STIMULI FOLLOWS COMMANDS DENIES PAIN OR DISCOMFORT VSS CPOC
[2019-09-19] VITALS (23 sets, daily range): BP systolic 114–161; BP diastolic 51–86
--- NOTE | 2019-09-19 03:00 | NUR ---
REASSESSMENT MADE NO CHANGES CPOC REPOSITIONED FOR COMFORT AND ORAL CARE PROVIDED
--- NOTE | 2019-09-19 03:45 | NUR ---
TRENCHER DRIVER HERE FOR AM BLOOD DRAW
[2019-09-19 03:56] LABS: BASOPHILS 0.1 % (0-2); EOSINOPHILS 2.9 % (0-7); HEMOGLOBIN 11.7 g/dL (13.5-17.5); IMMATURE GRANULOCYTES 1.5 % (0-5); LYMPHOCYTES 8.9 % (15-50); MCH 30.7 pg (26.0-34.0); MCHC 32.5 g/dL (31.0-37.0); MCV 94.5 fL (80.0-100.0); MONOCYTES 13.3 % (2-11); NEUTROPHILS 73.3 % (40-80); RBC 3.81 10x6/uL (4.20-6.10); RDW 14.1 % (11.5-14.5); WBC 10.5 10x3/uL (4.8-10.8)
[2019-09-19 03:59] LABS: PLATELET COUNT 213 10x3/uL (130-400)
[2019-09-19 04:15] LABS: ALBUMIN 1.9 g/dL (3.4-5.0); ANION GAP 11.6 mmol/L (8-16); BILIRUBIN - TOTAL 0.35 mg/dL (0.2-1.3); CALCIUM 8.8 mg/dL (8.5-10.1); CARBON DIOXIDE 25.9 mmol/L (21.0-32.0); CREATININE - SERUM 1.2 mg/dL (0.6-1.3); MAGNESIUM - SERUM 1.9 mg/dL (1.8-2.4); PHOSPHOROUS 3.3 mg/dL (2.5-4.9); POTASSIUM - SERUM 3.5 mmol/L (3.5-5.1); PROTEIN - SERUM 6.2 g/dL (6.4-8.2)
--- NOTE | 2019-09-19 04:15 | NUR ---
PT REQUESTING BED MUNOZ. MODERATE AMOUNT OF DARK BROWN LIQUID STOOL PARTIAL BED BATH AND LINEN CHANGE
--- NOTE | 2019-09-19 07:00 | NUR ---
AWAKE AND ALERT, TRYING TO TALK, ENCOURAGE TO USE ALPHABET BOARD. MOVING LIPS JUST WE CAN HEAR HIM. PLACED ON BED MUNOZ, PASSING ALOT OF GAS, SOME LIQUID BROWN STOOL. NO FOUL ODOR TO STOOL. COUGHING ALOT MATTHEWS SPUTUM FROM TRACH. BLOODY MUCOUS SPUTUM FROM AROUND TRACH. CLEAR SPUTUM ORALLY. ENCOURAGE TO USE YANKEUR AND SUCTION HIS MOUTH. PATIENT WEAK, NOT ABLE TO USE HAND ARMS MUCH. HAVING PATIENT USE ARMS TO HELP TURN SELF TO INCREASE STRENGTH. TRACH TO VENT. ABD TIGHT AND DISTENDED. PEG SITE WITHOUT REDNESS OR DRAINAGE INFUSING WITH JEVITY 1.2 AT 35 ML HOUR. ESTES CATH PATENT. IV RIGHT WRIST INFUSING WITH DIPRIVAN AT 50 MCG/KG/MIN. RIGHT UPPER ARM INFUSING WITH PROCALAMINE AT 75 ML HOUR. NS FOR IVPB. HEAD OF BED ELEVATED 30 DEGREES.
--- NOTE | 2019-09-19 09:00 | NUR ---
FAMILY HERE. PATIENT ON BEDPAN SEVERAL TIMES. PATIENT PASSING GAS SOME LIQUID BROWN STOOL. COUGHING FREQ LARGE AMOUNT OF SECRETIONS SUCTIONED FROM TRACH MATTHEWS WHITE SPUTUM. CLEAR SECRETIONS FROM MOUTH SUCTIONG SELF ORALLY. TRACH CARE DONE. BLODDY MUCOUS SECRETIONS FROM AROUND TRACH. DIPRIVAN OFF FOR CPAP TRAILS ON VENT. FENTANYL CONTINUES AT 100 MCG/HOUR. PROCALAMINE TO BE DC'D WHEN BOTTLE COMPLETE. TUBE FEEDING JEVITY CONTINUES AT 35 ML HOUR.
--- NOTE | 2019-09-19 10:44 | MORECARE ---
CASE MANAGEMENT DISCHARGE SUMMARY PATIENT: DANIKA WILSON UNIT: [id number] ADM DATE: 09/05/19 AGE: 59 : 58 SEX: M ROOM/BED: D.2303 AUTHOR: PARVIZDOC PHYSICIAN: REFERRING PHYSICIAN: MOON KING MD DATE OF SERVICE: 09/19/19 Discharge Plan Patient Name: DANIKA WILSON Facility: [facility]:[place] : 1960 Planned Disposition: Home Anticipated Discharge Date: Discharge Date: Expected LOS: Initial Reviewer: [id number] Initial Review Date: 09/07/2019 Generated: 09/19/19 11:44 am Comments DCP- Discharge Planning Updated by [id number]: Renetta Bill on 09/19/19 9:[address] Patient Name: DANIKA WILSON Admission Status: ER Accout number: [id number] Admission Date: 09-05-2019 : 1960 Admission Diagnosis: Attending: MOON KING Current LOS: 14 Anticipated DC Date: Planned Disposition: Home Primary Insurance: [employer] PRVT OPTIONS TAMARA Discharge Planning Comments: CM SPOKE WITH PATIENT'S SISTERS LEXI AND JAYANT WILSON ABOUT LTAC PLACEMENT. PATIENT CHOICE FORM GIVEN, [facility] FOR [facility] [place]. I SPOKE WITH PEARL NUÑEZ AT LTAC AND I AM FAXING DOCUMENTS TO HER. SHE STATES IT WILL BE SATURDAY BEFORE SHE CAN GET AUTH FROM INSURANCE COMPANY. CM TO FOLLOW AND ASSIST NEEDED. PHONE NUMBERS FOR JAYANT IS [phone] AND LEXI [phone]. Kettle Room Helper: Renetta Bill DCP- Discharge Planning Updated by [id number]: Nitza Chase on 09/07/19 4:[address] Patient Name: DANIKA WILSON Admission Status: ER Accout number: [id number] Admission Date: 09-05-2019 : 1960 Admission Diagnosis: Attending: MOON KING Current LOS: 2 Anticipated DC Date: Planned Disposition: Home Primary Insurance: [employer] PRVT OPTIONS TAMARA Discharge Planning Comments: CM met with patient to complete initial dc planning assessment. CM educated patient on the CM role and verbal consent given by patient to complete assessment. Patient lives at home alone. At discharge patient plans to return and feels this is a safe discharge. CM discussed availability of home health, rehab services, and medical equipment. Declines need for home health or rehab. Patient states Dr. Jacobs states he will need a nebulizer at discharge. I have called Akbar with [facility] and she will be here in the am. Patient states he has tried to have [facility] peanut picker his old oxygen machine, but they have not gotten it yet. I will have Akbar discuss this with the patient when she comes in the morning. CM will continue to follow and will assist as needed with dc plans/needs. Kettle Room Helper: Nitza Chase DCPIA - Discharge Planning Initial Assessment Updated by [id number]: Nitza Chase on 09/07/19 5:00 pm * Is the patient Alert and Oriented? Yes * How many steps to enter\exit or inside your home? 0/0 * PCP Bernice Kebede * Pharmacy [facility] on [facility] * Preadmission Environment Home Alone * ADLs Independent * Equipment Other Oxygen * Other Equipment Portable oxygen * List name and contact numbers for known caregivers / representatives who currently or will assist patient after discharge: Jayant Pritchard [facility] - [phone] Lexi [facility] [phone] Sanjana Wright [facility] [phone] * Verbal permission to speak to the caregivers and representatives has been obtained from the patient. Yes * Community resources currently utilized None * Please name any agencies selected above. DME for oxygen is [facility] * Additional services required to return to the preadmission environment? Yes * Can the patient safely return to the preadmission environment? Yes * Has this patient been hospitalized within the prior 30 days at any hospital? Yes External Providers External Provider: Cherrie Paniagua [place] Next Contact Date: Service Request Date: Service Type: Resolution: Reviewer: Comments: Coverage Notice Reviewer: [id number] - Nitza Chase Notice Issued Date-Time: 09/07/2019 17:06 Notice Type: Patient Choice Letter Notice Delivered To: Patient Relationship to Patient: Self Car Hostler Name: Delivery Method: HAND - Hand Delivered Riddhi Days: Prior Verbal Notification: Recipient Understood Notice: Yes Recipient Signature: Yes Med Rec Note Co-signed by Attending: Coverage Notice Comment: ROSELINE for [employer] Reviewer: [id number] Francheska Bill Notice Issued Date-Time: 09/19/2019 10:41 Notice Type: Patient Choice Letter Notice Delivered To: Family Member Relationship to Patient: Sister Car Hostler Name: LEXI WILSON Delivery Method: HAND - Hand Delivered Riddhi Days: Prior Verbal Notification: Recipient Understood Notice: Yes Recipient Signature: Yes Med Rec Note Co-signed by Attending: Coverage Notice Comment: ROSELINE FOR C[facility]STINA [facility] Last DP export: 09/07/19 4:13 Patient Name: DANIKA WILSON Page [id number] at 1044 All edits/amendments must be made on the electronic document DICTATION DATE: 09/19/19 1044 GARMENT INSPECTOR: FERNANDA 09/19/19 1044 RPT#: [id number] DC DATE: STATUS: ADM IN [facility] [address] [place] [address] END OF REPORT
--- NOTE | 2019-09-19 11:25 | MORECARE ---
CASE MANAGEMENT DISCHARGE SUMMARY PATIENT: DANIKA WILSON UNIT: [id number] ADM DATE: 09/05/19 AGE: 59 : 58 SEX: M ROOM/BED: D.2303 AUTHOR: PARVIZ,DOC PHYSICIAN: REFERRING PHYSICIAN: MOON KING MD DATE OF SERVICE: 09/19/19 Discharge Plan Patient Name: DANIKA WILSON Facility: [facility]:[place] : 1960 Planned Disposition: Shelter Acute Care Facility Anticipated Discharge Date: Discharge Date: Expected LOS: Initial Reviewer: [id number] Initial Review Date: 09/07/2019 Generated: 09/19/19 12:24 pm Comments DCP- Discharge Planning Updated by [email or web address]: Renetta Bill on 09/19/19 9:[address] Patient Name: DANIKA WILSON Admission Status: ER Accout number: [id number] Admission Date: 09-05-2019 : 1960 Admission Diagnosis: Attending: MOON KING Current LOS: 14 Anticipated DC Date: Planned Disposition: Home Primary Insurance: [employer] PRVT OPTIONS [place] Discharge Planning Comments: CM SPOKE WITH PATIENT'S SISTERS LEXI AND JAYANT WILSON ABOUT LTAC PLACEMENT. PATIENT CHOICE FORM GIVEN, [facility] FOR [facility] IN [place]. I SPOKE WITH PEARL NUÑEZ AT LT[facility] AND I AM FAXING DOCUMENTS TO HER. SHE STATES IT WILL BE SATURDAY BEFORE SHE CAN GET AUTH FROM INSURANCE COMPANY. CM TO FOLLOW AND ASSIST NEEDED. PHONE NUMBERS FOR JAYANT IS [phone] AND LEXI [phone]. Apprenticeship Training Representative: Renetta Bill DCP- Discharge Planning Updated by [id number]: Nitza Chase on 09/07/19 4:[address] Patient Name: DANIKA WILSON Admission Status: ER Accout number: [id number] Admission Date: 09-05-2019 : 1960 Admission Diagnosis: Attending: MOON KING Current LOS: 2 Anticipated DC Date: Planned Disposition: Home Primary Insurance: [employer] PRVT OPTIONS TAMARA Discharge Planning Comments: CM met with patient to complete initial dc planning assessment. CM educated patient on the CM role and verbal consent given by patient to complete assessment. Patient lives at home alone. At discharge patient plans to return and feels this is a safe discharge. CM discussed availability of home health, rehab services, and medical equipment. Declines need for home health or rehab. Patient states Dr. Jacobs states he will need a nebulizer at discharge. I have called Akbar with [facility] and she will be here in the am. Patient states he has tried to have [facility] fish bait picker his old oxygen machine, but they have not gotten it yet. I will have Akbar discuss this with the patient when she comes in the morning. CM will continue to follow and will assist as needed with dc plans/needs. Apprenticeship Training Representative: Nizta Chase DCPIA - Discharge Planning Initial Assessment Updated by [id number]: Nitza Chase on 09/07/19 5:00 pm * Is the patient Alert and Oriented? Yes * How many steps to enter\exit or inside your home? 0/0 * PCP Bernice Kebede * Pharmacy [facility] on [facility] * Preadmission Environment Home Alone * ADLs Independent * Equipment Other Oxygen * Other Equipment Portable oxygen * List name and contact numbers for known caregivers / representatives who currently or will assist patient after discharge: Jayant mckeon - [phone] Lexi - [phone] Sanjana Wright - [phone] * Verbal permission to speak to the caregivers and representatives has been obtained from the patient. Yes * Community resources currently utilized None * Please name any agencies selected above. DME for oxygen is [facility] * Additional services required to return to the preadmission environment? Yes * Can the patient safely return to the preadmission environment? Yes * Has this patient been hospitalized within the prior 30 days at any hospital? Yes Coverage Notice Reviewer: [id number] - Nitza Chase Notice Issued Date-Time: 09/07/2019 17:06 Notice Type: Patient Choice Letter Notice Delivered To: Patient Relationship to Patient: Self Muleser Name: Delivery Method: HAND - Hand Delivered Riddhi Days: Prior Verbal Notification: Recipient Understood Notice: Yes Recipient Signature: Yes Med Rec Note Co-signed by Attending: Coverage Notice Comment: ROSELINE for [facility] Reviewer: [id number] Francheska Bill Notice Issued Date-Time: 09/19/2019 10:41 Notice Type: Patient Choice Letter Notice Delivered To: Family Member Relationship to Patient: Sister Muleser Name: LEXI WILSON Delivery Method: HAND - Hand Delivered Riddhi Days: Prior Verbal Notification: Recipient Understood Notice: Yes Recipient Signature: Yes Med Rec Note Co-signed by Attending: Coverage Notice Comment: ROSELINE FOR CRISTINA Delcid DP export: 09/19/19 9:44 Patient Name: DANIKA WILSON Page 42108 at 1125 All edits/amendments must be made on the electronic document DICTATION DATE: 09/19/191123 INSURANCE AGENCY MANAGER: FERNANDA 09/19/19 1124 RPT#: [id number] DC DATE: STATUS: ADM IN [facility] [address] [address] END OF REPORT
--- NOTE | 2019-09-19 12:30 | NUR ---
COUGHING INNER CANNUAL OUT OF TRACH. RESP THERAPY REPLACING. STILL ALOT OF ORAL AND TRACHEAL SECRETIONS. ON BED MUNOZ FREQ PASSING ALOT OF GAS. SOME LIQUID BROWN STOOL. NO FOUL ODOR TO STOOL. COMPLETED BED BATH GIVEN WITH HIBCLENS BATH GIVEN WITH LINEN CHANGE. BUTT PASTE APPLIED TO COCCYX, ANUAL AREA AND BETWEEN LEGS. PATIENT FEELS RAWN THERE. ABD STILL TIGHT AND LOOKS DISTENDED. ORDERS RECEIVED TO TURN TUBEE FEEDING OFF FOR NOW PER DR. SIDHU MEDS GIVEN FOR NAUSEA.
--- NOTE | 2019-09-19 13:30 | NUR ---
ON BEDPAN PASSING GAS NO STOOL. ENCOURAGE TO TURN SELF PRESEDEX STARTED O.2 MCG/KCMIN. NO RESP DISTRESS TOLERATING CPAP WELL.
--- NOTE | 2019-09-19 15:00 | NUR ---
FAMILY HERE UPDATE GIVEN. CONTINUE TO SUCTIONS LARGE AMOUNTS FROM TRACH, ORALLY AND SOME AROUND TRACH. ENCOURAGE STOP TRYING TO TAKE DEEP BREATHS WITH HIS MOUTH. COULD BE CAUSING GAS IN ABD. TUBE FEEDING OFF. FLUSHED TUBE. ON BED MUNOZ PASSING GAS AND LIQUID BROWN STOOL.
--- NOTE | 2019-09-19 17:00 | NUR ---
PATIENT MUCH MORE CALMER ON PRESEDEX. NOT COUGHING MUCH, NOT REQUESTING TO BE ON THE BEDPAN CONSTANTLY. NAPPING AT INTERVALS. RELAXING MORE. TOLERATED CPAP WELL TODAY FOR 9 HOURS. NO DISTRESS. BACK AC OF 16
--- NOTE | 2019-09-19 18:19 | NUR ---
FAMILY HERE REMINDED PATIENT NOT TO BREATH SO HARD THROUGHT HIS MOUTH,
--- NOTE | 2019-09-19 19:30 | NUR ---
SHIFT ASSESSMENT COMPLETED SEE FLOWSHEET
--- NOTE | 2019-09-19 20:02 | NUR ---
patient requested bed tapia x2 - 2 small liquid bowel movements noted
--- NOTE | 2019-09-19 21:16 | NUR ---
PT RECEIVED HS MEDICATIONS
--- NOTE | 2019-09-19 23:30 | NUR ---
REASSESSMENT COMPLETED SEE FLOWSHEET
[2019-09-20] VITALS (25 sets, daily range): BP systolic 91–171; BP diastolic 43–93
--- NOTE | 2019-09-20 01:12 | NUR ---
PT RESTING COMFORTABLY NO ACUTE CHANGES
--- NOTE | 2019-09-20 03:20 | NUR ---
REASSESSMENT COMPLETED SEE FLOWSHEET
[2019-09-20 03:24] LABS: BASOPHILS 0.2 % (0-2); EOSINOPHILS 2.2 % (0-7); HEMATOCRIT 34.4 % (42.0-54.0); HEMOGLOBIN 11.2 g/dL (13.5-17.5); IMMATURE GRANULOCYTES 1.4 % (0-5); LYMPHOCYTES 8.6 % (15-50); MCH 30.8 pg (26.0-34.0); MCHC 32.6 g/dL (31.0-37.0); MCV 94.5 fL (80.0-100.0); MEAN PLATELET VOLUME 9.7 fL (7.4-10.4); MONOCYTES 8.5 % (2-11); NEUTROPHILS 79.1 % (40-80); PLATELET COUNT 231 10x3/uL (130-400); RBC 3.64 10x6/uL (4.20-6.10); RDW 13.9 % (11.5-14.5); WBC 12.2 10x3/uL (4.8-10.8)
[2019-09-20 03:37] LABS: ALBUMIN 1.9 g/dL (3.4-5.0); ALKALINE PHOSPHATASE 53 U/L (46-116); CALC OSMOLALITY 274 mosm/kg (275-300); CALCIUM 9.2 mg/dL (8.5-10.1); CARBON DIOXIDE 27.9 mmol/L (21.0-32.0); CHLORIDE - SERUM 103 mmol/L (98-107); GLUCOSE 95 mg/dL (74-106); MAGNESIUM - SERUM 1.8 mg/dL (1.8-2.4); PHOSPHOROUS 2.8 mg/dL (2.5-4.9); PROTEIN - SERUM 6.1 g/dL (6.4-8.2); SODIUM 135 mmol/L (136-145); UREA NITROGEN 27 mg/dL (7-18)
[2019-09-20 03:46] LABS: CREATININE - SERUM 0.8 mg/dL (0.6-1.3); POTASSIUM - SERUM 4.1 mmol/L (3.5-5.1); eGFR NON AFRICAN AMERICAN > 90 mL/min (90-120)
[2019-09-20 03:47] LABS: ALT (SGPT) 23 U/L (10-68)
--- NOTE | 2019-09-20 05:00 | NUR ---
PT REQUESTING TOOTH BRUSH AND TOOTH PASTE EXPLAINED TO PATIENT THAT WASN'T SOMETHING I COULD PROVIDE AT THIS TIME AND OFFERED ALTERNATIVES. PATIENT REQUESTED TO SPEAK WITH [facility]
--- NOTE | 2019-09-20 07:10 | NUR ---
AWAKES EASILY TO VERBAL STIMULI SKIN WARM AND DRY. TRACH TO VENT. RIGHT WRIST IV WITHOUT REDNESS OR SWELLING INFUSING WITH PRESEDEX 0.1 MCG. FENTANYL AT 100 MCG AND NS KVO. NO DISTRESS RESTING COMFORTABLY. ESTES CATH PATENT. HEAD OF BED ELEVATED 30 DEGREES. COMMUNICATES WITH ALPHABET BOARD AND HAND GESTURES. ABD SOFT THIS AM.
--- NOTE | 2019-09-20 07:30 | NUR ---
PRESEDEX TURNED OFF ON CPAP ON VENT. TOLERATING WELL AT THIS TIME NO DISTRESS. PATIENT ALERT OBEYING COMMANDS. GOOD STRENGHT IN ALL EXTREMITIES.
--- NOTE | 2019-09-20 08:53 | NUR ---
ON BED MUNOZ PASSING GAS. NO STOOL. TUBE FEEDING JEVITY 1/2 RESTARTED AT 35 ML HOUR. 100ML WATER BOLUS GIVEN.
--- NOTE | 2019-09-20 10:00 | NUR ---
ON BED MUNOZ PASSING GAS. TOLERATING TUBE FEEDING ABD SOFT, SOME TENDERNESS WITH PALPATATION. NO RESP DISTRESS WITH CPAP ON VENT. COUGHING AT TIMES SUCTION SMALL AMOUNT WHITE MATTHEWS SPUTUM PER TRACH.OCC ORAL SUCTION WITH YANKEUR PER PATIENT. ESTES CATH PATENT.
--- NOTE | 2019-09-20 12:00 | NUR ---
FAMILY AT BEDSIDE UPDATE GIVEN. ON BEDPAN PASSING GAS. NO DISTRESS ON CPAP OR WITH TUBE FEEDING.
--- NOTE | 2019-09-20 14:00 | NUR ---
SITTING UP IN BED READING NEWSPAPER. NO DISTRESS. FAMILY AT BEDSIDE
--- NOTE | 2019-09-20 15:00 | NUR ---
COMPLETE HIBCLENS BATH GIVEN WITH LINEN CHANGE. TRACH CARE. ESTES CATH CARE. PATIENT TOLERATES FAIR. COUGHING UP LARGE AMOUNT MATTHEWS SPUTUM PER TRACH. CLEAR SECRETION ORALLY. SOME MATTHEWS SECRETIONS AROUND TRACH. TOLERATING TUBE FEEDING WELL. ABD SOFT. STILL PASSING ALOT OF GAS ON BEDPAN. ESTES CATH PATENT. FENTANYL AT 100 MCG. NS AT KVO. WATCHING FOOTBALL ON TV
--- NOTE | 2019-09-20 16:00 | NUR ---
FAMILY AT BEDSIDE. PATIENT TALKING WITH FAMILY, SETTING ALARMS OFF ON VENT. PATIENT BECOMING SHORT OF BREATH. REQUEST TO GO BACK ON VENT. RESP THERAPY NOTIFIED. ENCOURAGE PATIENT TO STOP TALKING AND CATCH HIS BREATH. FAMILY UPSET WANT TO CONTINUE TO COMMUNICATE WITH PATIENT. FENTANYL INCREASED TO 200 MCG/HOUR TO ALLOW PATIENT TO RELAX AND GET SOME REST
--- NOTE | 2019-09-20 18:00 | NUR ---
PATIENT RESTING MORE COMFORTABLY. NO DISTRESS
--- NOTE | 2019-09-20 19:00 | NUR ---
SHIFT ASSESSMENT COMPLETED. PT CARE ASSUMED, MONITORS ON AND WORKING, VITALS STABLE, PT AWAKE AND ALERT, CALL LIGHT WITHIN REACH, NO SIGNS/SYMPTOMS OF PAIN OR DISCOMFORT NOTED. VENT SETTING NOTED VIA TRACH. SEE FLOW SHEET FOR FURTHER DETAILS. WILL CONTINUE TO OBSERVE.
--- NOTE | 2019-09-20 20:00 | NUR ---
FAMILY AT BEDSIDE, UPDATE PROVIDED, PT DENIES ANY COMPLAINT OF PAIN OR DISCOMFORT, PT REFUSED SEROQUEL, CALL LIGHT WITHIN REACH, WILL CONTINUE TO OBSERVE.
--- NOTE | 2019-09-20 21:00 | NUR ---
PT TURNED AND REPOSITIONED FOR COMFORT, MONITORS ON AND WORKING, CALL LIGHT WTIHIN REACH, ORAL CARE PROVIDED AT THIS TIME WELL. WILL CONTINUE TO OBSERVE.
--- NOTE | 2019-09-20 23:00 | NUR ---
PT LYING IN BED RESTING, MONITORS ON AND WORKING, VITALS STABLE, CALL LIGHT WITHIN REACH, SEE FLOW SHEET FOR FURTHER DETAILS. WILL CONTINUE TO OBSERVE.
[2019-09-21] VITALS (24 sets, daily range): BP systolic 85–162; BP diastolic 54–102
--- NOTE | 2019-09-21 01:00 | NUR ---
PT TURNED AND REPOSITIONED FOR COMFORT, MONITORS ON AND WORKING, VITALS STABLE, CALL LIGHT WITHIN REACH, WILL CONTINUE TO OBSERVE.
--- NOTE | 2019-09-21 03:00 | NUR ---
PT TURNED AND REPOSITIONED FOR COMFORT, MONITORS ON AND WORKING, VITALS STABLE, CALL LIGHT WITHN REACH, NO FURTHER CHANGES AT THIS TIME, SEE FLOW SHEET FOR FURTHER DETAILS. WILL CONTINUE TO OBSERVE.
[2019-09-21 04:19] LABS: BASOPHILS 0.2 % (0-2); EOSINOPHILS 3.5 % (0-7); HEMATOCRIT 35.6 % (42.0-54.0); HEMOGLOBIN 11.6 g/dL (13.5-17.5); IMMATURE GRANULOCYTES 1.1 % (0-5); LYMPHOCYTES 10.9 % (15-50); MCHC 32.6 g/dL (31.0-37.0); MCV 95.2 fL (80.0-100.0); MEAN PLATELET VOLUME 9.3 fL (7.4-10.4); MONOCYTES 11.8 % (2-11); NEUTROPHILS 72.5 % (40-80); RBC 3.74 10x6/uL (4.20-6.10); RDW 13.8 % (11.5-14.5)
[2019-09-21 04:40] LABS: PLATELET COUNT 284 10x3/uL (130-400); WBC 8.9 10x3/uL (4.8-10.8)
[2019-09-21 04:57] LABS: ALBUMIN 2.2 g/dL (3.4-5.0); ALKALINE PHOSPHATASE 65 U/L (46-116); BILIRUBIN - TOTAL 0.39 mg/dL (0.2-1.3); CALC OSMOLALITY 275 mosm/kg (275-300); CALCIUM 9.5 mg/dL (8.5-10.1); CARBON DIOXIDE 29.7 mmol/L (21.0-32.0); CHLORIDE - SERUM 102 mmol/L (98-107); CREATININE - SERUM 0.8 mg/dL (0.6-1.3); GLUCOSE 111 mg/dL (74-106); MAGNESIUM - SERUM 1.7 mg/dL (1.8-2.4); PHOSPHOROUS 2.2 mg/dL (2.5-4.9); POTASSIUM - SERUM 3.7 mmol/L (3.5-5.1); PROTEIN - SERUM 6.7 g/dL (6.4-8.2); SODIUM 136 mmol/L (136-145); UREA NITROGEN 21 mg/dL (7-18); eGFR NON AFRICAN AMERICAN > 90 mL/min (90-120)
--- NOTE | 2019-09-21 05:00 | NUR ---
FAMILY AT BEDSIDE, UPDATE PROVIDED. NO SIGNS/SYMPTOMS OF PAIN OR DISCOMFORT NOTED. MONITORS ON AND WORKING, VITALS STABLE. CALL LIGHT WITHIN REACH, WILL CONTINUE TO OBSERVE.
[2019-09-21 05:01] LABS: ALT (SGPT) 31 U/L (10-68)
--- NOTE | 2019-09-21 07:00 | NUR ---
REPORT RECEIVED. ASSESSMENT COMPLETE PER FLOW SHEET. VSS. PT RESTING COMFORTABLY WILL CONTINUE TO MONITOR
--- NOTE | 2019-09-21 09:12 | NUR ---
Nutrition follow-up: Pt awake, alert sitting in bed Trach/PEG Jevity 1.2 guido infusing @ 35 ml/hr; goal rate 60 ml/hr TF turned off 2/2 pt feeling nauseaed with gas. Wt: 155# RDN following.
--- NOTE | 2019-09-21 11:00 | NUR ---
REASSESSMENT COMPLETE PER FLOW SHEET. VSS. NO NEW CHANGES WILL CONTINUE TO MONITOR.
--- NOTE | 2019-09-21 12:10 | NUR ---
COMPLETE BB LINEN CHANGE ADM. ASSISTED OOB TO CHAIR DENIES NEEDS
--- NOTE | 2019-09-21 13:10 | NUR ---
PT ASSISTED TO BEDSIDE COMMODE SMALL BM NOTED
--- NOTE | 2019-09-21 16:22 | NUR ---
PT FAMILY AT BEDSIDE. FAMILY CONCERNED PT HALLUCINATING AT THIS TIME, PT REQUEST "PANTS FROM CLOSET" PT CONCERNED WITH PT MOOD ANXIOUS AND AGGITATED AND REFUSING SEROQUEL. STATED OKAY. DR KING GIVEN UPDATE THAT PT HR 124 PT DIAPHORETIC, ITCHING AND AGGITATED. NEW ORDERS RECEIVED. NEW ORDERS REVIEWED WITH FAMILY AND PT, PT STATED HE WOULD REFUSE MEDICATIONS. EXTENSIVE TEACHING GIVEN. WILL REASSESS. NURSE ASKED TO LEAVE AT THIS TIME.
--- NOTE | 2019-09-21 17:20 | NUR ---
pt assisted onto bedpan no bm noted
[2019-09-22] VITALS (24 sets, daily range): BP systolic 19–176; BP diastolic 60–98
[2019-09-22 04:32] LABS: BASOPHILS 0.1 % (0-2); EOSINOPHILS 3.4 % (0-7); HEMATOCRIT 33.1 % (42.0-54.0); HEMOGLOBIN 10.6 g/dL (13.5-17.5); IMMATURE GRANULOCYTES 0.9 % (0-5); LYMPHOCYTES 10.1 % (15-50); MCH 30.3 pg (26.0-34.0); MCV 94.6 fL (80.0-100.0); MEAN PLATELET VOLUME 9.4 fL (7.4-10.4); MONOCYTES 10.6 % (2-11); NEUTROPHILS 74.9 % (40-80); PLATELET COUNT 269 10x3/uL (130-400); RDW 13.5 % (11.5-14.5)
[2019-09-22 05:01] LABS: ALBUMIN 2.1 g/dL (3.4-5.0); ALKALINE PHOSPHATASE 60 U/L (46-116); ALT (SGPT) 29 U/L (10-68); BILIRUBIN - TOTAL 0.49 mg/dL (0.2-1.3); CALC OSMOLALITY 281 mosm/kg (275-300); CALCIUM 9.3 mg/dL (8.5-10.1); CARBON DIOXIDE 29.9 mmol/L (21.0-32.0); CHLORIDE - SERUM 103 mmol/L (98-107); CREATININE - SERUM 0.9 mg/dL (0.6-1.3); GLUCOSE 116 mg/dL (74-106); MAGNESIUM - SERUM 1.5 mg/dL (1.8-2.4); PHOSPHOROUS 2.7 mg/dL (2.5-4.9); PROTEIN - SERUM 6.4 g/dL (6.4-8.2); SODIUM 139 mmol/L (136-145); UREA NITROGEN 22 mg/dL (7-18); eGFR NON AFRICAN AMERICAN > 90 mL/min (90-120)
--- NOTE | 2019-09-22 07:00 | NUR ---
REPORT RECEIVED. ASSESSMENT COMPLETE PER FLOW SHEET. VSS. PT RESTING COMFORTABLY DENIES NEEDS WILL CONTINUE TO MONITOR
--- NOTE | 2019-09-22 08:15 | NUR ---
FAMILY ATBEDSIDE. GIVEN UDPATE. PT SLEEPING COMFORTABLY DENIES NEEDS WILL CONTINUE TOMONITOR
--- NOTE | 2019-09-22 09:30 | NUR ---
PT ASSISTED UP OOB TO BEDSIDE COMMODE. LARGE BM NOTED
--- NOTE | 2019-09-22 10:45 | NUR ---
DR HIGGINS AT BEDSIDE. UPDTAE GIVEN. PT SWITCHED TO TRACH COLLAR BY RT AT THIS TIME. O2 SAT 96% RR 22 NON LABORED. WILL CONTINUE TO MONITOR
--- NOTE | 2019-09-22 11:00 | NUR ---
REASSESSMENT COMPLETE PER FLOW SHEET. VSS. NO NEW CHANGES WILL CONTINUE TO MONITOR
--- NOTE | 2019-09-22 13:10 | NUR ---
PT PLACED BACK ON VENT PER REQUEST. DENIES NEEDS SLEEPING COMFORTABLY WILL CONTINUE TO MONITOR
--- NOTE | 2019-09-22 15:00 | NUR ---
REASSESSMENT COMPLETE PER FLOW SHEET. VSS. NO NEW CHANGES WILL CONTINUE TO MONITOR
--- NOTE | 2019-09-22 19:00 | NUR ---
ASSESSMENT COMPLETED. PATIENT ON OXYGEN VIA TRACH COLLAR. REFUSES FOR NURSE TO CHECK RESIDUAL OR FLUSH PEG TUBE. ALSO, REFUSING TUBE FEEDINGS. CALL LIGHT IN REACH.
--- NOTE | 2019-09-22 20:15 | MORECARE ---
CASE MANAGEMENT DISCHARGE SUMMARY PATIENT: DANIKA WILSON UNIT: [id number] ADM DATE: 09/05/19 AGE: 59 : 58 SEX: M ROOM/BED: D.2303 AUTHOR: PARVIZ,DOC PHYSICIAN: REFERRING PHYSICIAN: MOON KING MD DATE OF SERVICE: 09/22/19 Discharge Plan Patient Name: DANIKA WILSON Facility: [facility]:[place] : 1960 Planned Disposition: Care Home Acute Care Facility Anticipated Discharge Date: Discharge Date: Expected LOS: Initial Reviewer: [id number] Initial Review Date: 09/07/2019 Generated: 09/22/19 9:15 pm Comments DCP- Discharge Planning Updated by [id number]: Maddison White on 09/22/19 7:[address] CM spoke with [facility] awaiting auth from insurance. CM faxed updates. CM spoke with patient and family regarding not being able to start any Cancer treatment until out of [facility]. Family verbalized understanding. CM will continue to follow and assist as needed with discharge planning / needs, DCP- Discharge Planning Updated by [id number]: Renetta Bill on 09/19/19 9:[address] Patient Name: DANIKA WILSON Admission Status: ER Accout number: [id number] Admission Date: 09-05-2019 : 1960 Admission Diagnosis: Attending: MOON KING Current LOS: 14 Anticipated DC Date: Planned Disposition: Home Primary [facility] Discharge Planning Comments: CM SPOKE WITH PATIENT'S SISTERS LEXI AND JAYANT WILSON ABOUT LTAC PLACEMENT. PATIENT CHOICE FORM GIVEN, ROSELINE FOR [facility] [place]. I SPOKE WITH SANDRA NUÑEZ AT [facility] AND I AM FAXING DOCUMENTS TO HER. SHE STATES IT WILL BE SATURDAY BEFORE SHE CAN GET AUTH FROM INSURANCE COMPANY. CM TO FOLLOW AND ASSIST NEEDED. PHONE NUMBERS FOR JAYANT ELLER [phone] AND LEXI [phone]. Dry Sand Molder: Renetta Bill DCP- Discharge Planning Updated by [id number]: Nitza Chase on 09/07/19 4:[address] Patient Name: DANIKA WILSON Admission Status: ER Accout number: [id number] Admission Date: 09-05-2019 : 1960 Admission Diagnosis: Attending: MOON KING Current LOS: 2 Anticipated DC Date: Planned Disposition: Home [facility] Discharge Planning Comments: CM met with patient to complete initial dc planning assessment. CM educated patient on the CM role and verbal consent given by patient to complete assessment. Patient lives at home alone. At discharge patient plans to return and feels this is a safe discharge. CM discussed availability of home health, rehab services, and medical equipment. Declines need for home health or rehab. Patient states Dr. Jacobs states he will need a nebulizer at discharge. I have called Akbar with [facility] and she will be here in the am. Patient states he has tried to have [facility] knot picker cloth his old oxygen machine, but they have not gotten it yet. I will have Akbar discuss this with the patient when she comes in the morning. CM will continue to follow and will assist as needed with dc plans/needs. Dry Sand Molder: Nitza Chase DCPIA - Discharge Planning Initial Assessment Updated by [id number]: Nitza Chase on 09/07/19 5:00 pm * Is the patient Alert and Oriented? Yes * How many steps to enter\exit or inside your home? 0/0 * PCP Bernice Kebede * Pharmacy [facility] on [facility] * Preadmission Environment Home Alone * ADLs Independent * Equipment Other Oxygen * Other Equipment Portable oxygen * List name and contact numbers for known caregivers / representatives who currently or will assist patient after discharge: Jayant [facility] [phone] [facility] [phone] Sanjana Wright [facility] [phone] * Verbal permission to speak to the caregivers and representatives has been obtained from the patient. Yes * Community resources currently utilized None * Please name any agencies selected above. DME for oxygen is [facility] * Additional services required to return to the preadmission environment? Yes * Can the patient safely return to the preadmission environment? Yes * Has this patient been hospitalized within the prior 30 days at any hospital? Yes Coverage Notice Reviewer: [id number] - Nitza Chase Notice Issued Date-Time: 09/07/2019 17:06 Notice Type: Patient Choice Letter Notice Delivered To: Patient Relationship to Patient: Self Running Instructor Name: Delivery Method: HAND - Hand Delivered Riddhi Days: Prior Verbal Notification: Recipient Understood Notice: Yes Recipient Signature: Yes Med Rec Note Co-signed by Attending: Coverage Notice Comment: ROSELINE for [facility] Reviewer: [id number] Francheska Bill Notice Issued Date-Time: 09/19/2019 10:41 Notice Type: Patient Choice Letter Notice Delivered To: Family Member Relationship to Patient: Sister Running Instructor Name: LEXI WILSON Delivery Method: HAND - Hand Delivered Riddhi Days: Prior Verbal Notification: Recipient Understood Notice: Yes Recipient Signature: Yes Med Rec Note Co-signed by Attending: Coverage Notice Comment: ROSELINE FOR CRISTINA [facility]LEOD [place] [facility] Last DP export: 09/19/19 10:25 Patient Name: DANIKA WILSON Page [id number] at 2014 All edits/amendments must be made on the electronic document DICTATION DATE: 09/22/192014 BOX SHOOK PATCHER: FERNANDA 09/22/192014 RPT#: [id number] DC DATE: STATUS: ADM IN [facility] [address] [place] [address] END OF REPORT
--- NOTE | 2019-09-22 21:00 | NUR ---
CHECKED RESIDUAL WHEN GAVE MEDICATIONS AND NONE NOTED. BUT PATIENT STILL REFUSED TO LET THIS NURSE FLUSH ANY MORE THAN THE MEDICATIONS. PATIENT WAS REFUSING PRECEDEX WHEN IT NEEDED CHANGING BUT SISTERS CAME AND TALKED TO PATIENT. PATIENT IS CUSSING AT THIS NURSE. CALL LIGHT IN REACH. 2 SISTERS AT BEDSIDE.
--- NOTE | 2019-09-22 23:00 | NUR ---
RE-ASSESSMENT COMPLETE. NO CHANGES SINCE LAST ASSESSMENT. CALL LIGHT IN REACH. PATIENT HAD VENT ON FOR APPROX 10 MINS AND REFUSED VENT.
[2019-09-23] VITALS (12 sets, daily range): BP systolic 130–190; BP diastolic 68–96
--- NOTE | 2019-09-23 01:00 | NUR ---
EYES CLOSED, EASILY WAKES. NO NEEDS VOICED AT THIS TIME. STILL CONT TO REFUSE PEG TUBE FLUSHES. CALL LIGHT IN REACH
--- NOTE | 2019-09-23 03:00 | NUR ---
LAURA MILLER, ATTEMPTED TO GO HANG ANOTHER VIAL. PATIENT STARTED WAVING HIS HANDS, STATING THAT HE ISN'T SUPPOSED TO BE ON MEDICATIONS. PATIENT STATED THAT HE WAS ABOUT TO GO HOME. ATTEMPTED TO EDUCATE PATIENT ON DISEASE PROCESS AND MEDICATIONS. PATIENT EVENTUALLY AGREED TO PRECEDEX BUT SAID HE MAY STILL PULL OUT HIS IV. CALLED LI MULLINS APRN TO UPDATE ON PATIENT. PATIENT SITTING UP IN BED, CALL LIGHT IN REACH. IV STILL INTACT.
--- NOTE | 2019-09-23 03:39 | NUR ---
STILL REFUSING PEG TUBE FLUSH, RESIDUAL CHECK, AND PEG TUBE FEEDING
[2019-09-23 04:13] LABS: BASOPHILS 0.5 % (0-2); EOSINOPHILS 3.3 % (0-7); HEMATOCRIT 33.6 % (42.0-54.0); HEMOGLOBIN 10.9 g/dL (13.5-17.5); IMMATURE GRANULOCYTES 0.5 % (0-5); LYMPHOCYTES 14.4 % (15-50); MCH 30.4 pg (26.0-34.0); MCHC 32.4 g/dL (31.0-37.0); MCV 93.6 fL (80.0-100.0); MEAN PLATELET VOLUME 9.4 fL (7.4-10.4); MONOCYTES 10.9 % (2-11); NEUTROPHILS 70.4 % (40-80); PLATELET COUNT 280 10x3/uL (130-400); RBC 3.59 10x6/uL (4.20-6.10); RDW 13.3 % (11.5-14.5); WBC 6.3 10x3/uL (4.8-10.8)
[2019-09-23 04:51] LABS: ALBUMIN 2.1 g/dL (3.4-5.0); ALKALINE PHOSPHATASE 58 U/L (46-116); ALT (SGPT) 30 U/L (10-68); BILIRUBIN - TOTAL 0.49 mg/dL (0.2-1.3); CALC OSMOLALITY 275 mosm/kg (275-300); CARBON DIOXIDE 27.7 mmol/L (21.0-32.0); CHLORIDE - SERUM 104 mmol/L (98-107); CREATININE - SERUM 0.9 mg/dL (0.6-1.3); GLUCOSE 80 mg/dL (74-106); MAGNESIUM - SERUM 1.5 mg/dL (1.8-2.4); PHOSPHOROUS 2.9 mg/dL (2.5-4.9); POTASSIUM - SERUM 4.3 mmol/L (3.5-5.1); PROTEIN - SERUM 6.4 g/dL (6.4-8.2); SODIUM 137 mmol/L (136-145); UREA NITROGEN 22 mg/dL (7-18); eGFR NON AFRICAN AMERICAN > 90 mL/min (90-120)
--- NOTE | 2019-09-23 05:30 | NUR ---
GOT CALLED TO PATIENT'S ROOM, PATIENT STATED THAT HE WAS READY FOR HIS TUBE FEEDING TO BE TURNED BACK ON. RESTARTED JEVITY 1.2 DAVID FEEDING AT 35 ML/HR SINCE THAT WAS THE LAST SETTING ON PUMP, HAVE NOT REACHED GOAL YET. NO RESIDUAL.
--- NOTE | 2019-09-23 05:36 | NUR ---
PATIENT REFUSED PRECEDEX AGAIN AND NEEDING TO BE CHANGED. WHEN THE CHARGE NURSE WENT TO TALK TO PATIENT HE THREW HIS TRACH COLLAR AND BEDSIDE TABLE. PATIENT STARTED TO MINIMALLY DESAT. REC'D ORDER FROM LI MULLINS APRN FOR RESTRAINTS AND ATIVAN 1 MG IV NOW. EDUCATED PATIENT THAT REFUSING HIS TRACH COLLAR WILL RESULT IN STAFF NEEDING TO RESTRAIN HIM DUE TO HIS OXYGEN LEVELS LOWERING. PATIENT STATED "YOU'RE NOT GOING TO DO SHIT." SISTER NOT AT BEDSIDE AND NOT IN WAITING ROOM. RESTRAINED PATIENT ANNE WRIST. SISTER CAME TO ROOM AT THAT TIME AND AGREED WITH STAFF THAT THIS WAS BEST FOR THE PATIENT. PATIENT ALSO WAS NOTED CLAMPING IV LINE AT THIS TIME WELL.
--- NOTE | 2019-09-23 07:15 | NUR ---
REPORT RECEIVED. PT RESTING QUIETLY. CURRENTLY HAS PRECEDEX INFUSING. TUBE FEED AT 35ML/HR. GOAL OF 60. VSS. WILL CONTINUE TO MONITOR.
--- NOTE | 2019-09-23 07:46 | NUR ---
Nutrition follow-up: Trach/PEG Pt has been refusing to have TF turned on and refusing flushes Jevity 1.2 guido now restarted @ 35 ml/hr; goal rate 60 ml/hr Labs reviewed Wt: 174# RDN following.
--- NOTE | 2019-09-23 09:29 | NUR ---
SEDATION TURNED OFF PER DR HIGGINS. GOT BLOOD GAS PER ORDER. HAD TO HOLD DOWN TO GET. SISTER AT BEDSIDE.
[2019-09-23] MEDS ORDERED: BROVANA15 MCG/2 M INH (09:52)
[2019-09-23] MEDS ORDERED: LOVENOX40 MG/0.4 SC (09:52)
[2019-09-23] MEDS ORDERED: ATROVENT 0.02%2.5 ML UPD (09:52)
--- NOTE | 2019-09-23 11:03 | NUR ---
PT HAD BM AND CHG BATH, PER JOCY MANZO. TUBE FEEDING HOOKED BACK UP. PT OUT OF RESTRAINTS AND COOPERATIVE. SON AT BEDSIDE ASSISTING. VSS. WILL CONTINUE TO MONITOR.
--- NOTE | 2019-09-23 12:05 | NUR ---
REPORT CALLED TO GUILLE RN, AT [facility]. AMBULANCE TO RESPITE COORDINATOR PT AT 1230.
--- NOTE | 2019-09-24 09:52 | MORECARE ---
CASE MANAGEMENT DISCHARGE SUMMARY PATIENT: DANIKA WILSON UNIT: [id number] ADM DATE: 09/05/19 AGE: 59 : 58 SEX: M ROOM/BED: D.2303 AUTHOR: PARVIZ,DOC PHYSICIAN: REFERRING PHYSICIAN: MOON KING MD DATE OF SERVICE: 09/24/19 Discharge Plan Patient Name: DANIKA WILSON Facility: [facility]:[place] : 1960 Planned Disposition: Custodial Acute Care Facility Anticipated Discharge Date: Discharge Date: 09/23/2019 Expected LOS: Initial Reviewer: [id number] Initial Review Date: 09/07/2019 Generated: 09/24/19 10:52 am Comments DCP- Discharge Planning Updated by [email or web address]: Maddison White on 09/22/19 7:[address] CM spoke with [facility] awaiting auth from insurance. CM faxed updates. CM spoke with patient and family regarding not being able to start any Cancer treatment until out of [facility]. Family verbalized understanding. CM will continue to follow and assist as needed with discharge planning / needs, DCP- Discharge Planning Updated by [email or web address]: Renetta Bill on 09/19/19 9:[address] Patient Name: DANIKA WILSON Admission Status: ER Accout number: [id number] Admission Date: 09-05-2019 : 1960 Admission Diagnosis: Attending: MOON KING Current LOS: 14 Anticipated DC Date: Planned Disposition: Home Primary [facility] Discharge Planning Comments: CM SPOKE WITH PATIENT'S SISTERS LEXI AND JAYANT WILSON ABOUT LTAC PLACEMENT. PATIENT CHOICE FORM GIVEN, [facility] FOR [facility] [place]. I SPOKE WITH SANDRA NUÑEZ AT [facility] AND I AM FAXING DOCUMENTS TO HER. SHE STATES IT WILL BE SATURDAY BEFORE SHE CAN GET AUTH FROM INSURANCE COMPANY. CM TO FOLLOW AND ASSIST NEEDED. PHONE NUMBERS FOR JAYANT ELLER [phone] AND LEXI [phone]. Cell Liner: Renetta Bill DCP- Discharge Planning Updated by [email or web address]: Nitza Chase on 09/07/19 4:[address] Patient Name: DANIKA WILSON Admission Status: ER Accout number: [id number] Admission Date: 09-05-2019 : 1960 Admission Diagnosis: Attending: MOON KING Current LOS: 2 Anticipated DC Date: Planned Disposition: Home Primary Insurance: [employer] Discharge Planning Comments: CM met with patient to complete initial dc planning assessment. CM educated patient on the CM role and verbal consent given by patient to complete assessment. Patient lives at home alone. At discharge patient plans to return and feels this is a safe discharge. CM discussed availability of home health, rehab services, and medical equipment. Declines need for home health or rehab. Patient states Dr. Jacobs states he will need a nebulizer at discharge. I have called Akbar with [facility] and she will be here in the am. Patient states he has tried to have [facility] pick remover his old oxygen machine, but they have not gotten it yet. I will have Akbar discuss this with the patient when she comes in the morning. CM will continue to follow and will assist as needed with dc plans/needs. Cell Liner: Nitza Chase DCPIA - Discharge Planning Initial Assessment Updated by [email or web address]: Nitza Chase on 09/07/19 5:00 pm * Is the patient Alert and Oriented? Yes * How many steps to enter\exit or inside your home? 0/0 * PCP Bernice Kebede * Pharmacy [facility] * Preadmission Environment Home Alone * ADLs Independent * Equipment Other Oxygen * Other Equipment Portable oxygen * List name and contact numbers for known caregivers / representatives who currently or will assist patient after discharge: Jayant [facility] - [phone] [facility] - [phone] Sanjana Wright [facility] - [phone] * Verbal permission to speak to the caregivers and representatives has been obtained from the patient. Yes * Community resources currently utilized None * Please name any agencies selected above. DME for oxygen is [employer] * Additional services required to return to the preadmission environment? Yes * Can the patient safely return to the preadmission environment? Yes * Has this patient been hospitalized within the prior 30 days at any hospital? Yes Coverage Notice Reviewer: [id number] - Nitza Chase Notice Issued Date-Time: 09/07/2019 17:06 Notice Type: Patient Choice Letter Notice Delivered To: Patient Relationship to Patient: Self [employer] Agent Name: Delivery Method: HAND - Hand Delivered Riddhi Days: Prior Verbal Notification: Recipient Understood Notice: Yes Recipient Signature: Yes Med Rec Note Co-signed by Attending: Coverage Notice Comment: [facility] for [facility] Reviewer: [email or web address] Francheska Bill Notice Issued Date-Time: 09/19/2019 10:41 Notice Type: Patient Choice Letter Notice Delivered To: Family Member Relationship to Patient: Sister [employer] Agent Name: LEXI WILSON Delivery Method: HAND - Hand Delivered Riddhi Days: Prior Verbal Notification: Recipient Understood Notice: Yes Recipient Signature: Yes Med Rec Note Co-signed by Attending: Coverage Notice Comment: [facility] FOR [facility] Delcid DP export: 09/22/19 7:15 p Patient Name: DANIKA WILSON Page [phone] at 0952 All edits/amendments must be made on the electronic document DICTATION DATE: 09/24/19951 JOURNEYMAN TOOL AND DIE MAKER: FERNANDA 09/24/19 0952 RPT#: [id number] DC DATE:09/23/19 STATUS: DIS IN [facility] [address] [place], [place] [address] END OF REPORT
== END 2019-09-23 13:43 | disposition short-term general hospital (02) | DRG 11 ==
LOC: D.ER 15:19 → D.ICU 18:43 → D.MS 18:43 → D.ICU 09-10 09:11
PROVIDERS: Family Medicine; Internal Medicine Pulmonary Disease; Otolaryngology; ADMIT Internal Medicine Nephrology; ATTEND Internal Medicine Nephrology
PROC: 0B110F4 Bypass Trachea to Cutaneous with Tracheostomy Device, Open Approach (ICD-10-PCS; principal; 2019-09-10 07:30)
PROC: 0CB Mouth and Throat, Excision (ICD-10-PCS; 2019-09-10 07:30)
PROC: 0DH63UZ Insertion of Feeding Device into Stomach, Percutaneous Approach (ICD-10-PCS; 2019-09-14)
DX: C32.9 Malignant neoplasm of larynx, unspecified (principal); J69.0 Pneumonitis due to inhalation of food and vomit; E43 Unspecified severe protein-calorie malnutrition; J44.1 Chronic obstructive pulmonary disease with (acute) exacerbation; Z85.118 Personal history of other malignant neoplasm of bronchus and lung; J38.3 Other diseases of vocal cords; J38.00 Paralysis of vocal cords and larynx, unspecified; I12.9 Hypertensive chronic kidney disease with stage 1 through stage 4 chronic kidney disease, or unspecified chronic kidney disease; N18.9 Chronic kidney disease, unspecified; F12.10 Cannabis abuse, uncomplicated; E87.6 Hypokalemia; Z91.19 Patient's noncompliance with other medical treatment and regimen; F19.10 Other psychoactive substance abuse, uncomplicated; I27.20 Pulmonary hypertension, unspecified; R63.4 Abnormal weight loss; Z68.26 Body mass index [BMI] 26.0-26.9, adult

== ENCOUNTER 2019-11-19 14:13 | Emergency (ER) | payer OTHER ==
[~2019-11-19 14:13] MED LIST changes: +ATROVENT 0.02%2.5 ML UPD; +BROVANA15 MCG/2 M INH; +LOVENOX40 MG/0.4 SC; +PROMETHAZINE W473 ML PO
[2019-11-19 14:21] VITALS: Ht 170.2 cm
[2019-11-19] MEDS ORDERED: CYCLOBENZAPRINE10 MG PO (16:16)
[2019-11-19 16:50] VITALS: BP 142/68
== END 2019-11-19 16:50 | disposition home or self-care (01) ==
LOC: D.ER 14:13
DX: R51 Headache (principal); M25.511 Pain in right shoulder; M54.5 Low back pain; V89.2XXA Person injured in unspecified motor-vehicle accident, traffic, initial encounter; Y93.9 Activity, unspecified; Y92.9 Unspecified place or not applicable; I10 Essential (primary) hypertension; J44.9 Chronic obstructive pulmonary disease, unspecified; C34.90 Malignant neoplasm of unspecified part of unspecified bronchus or lung